=== PATIENT | male | born 1945 | race Caucasian/White ===

== ENCOUNTER → 2016-11-15 | Day surgery (SDC) | payer MEDICARE ==
[~2016-11-15] VITALS: Ht 165.1 cm; Wt 76.5 kg
[~2016-11-15] MED LIST: ACET500T3 PO; CEFT1INJ5 IV; CEFT250T8 PO; CEFU250T PO; CEPH-459 PO; CHLO25TA2 PO; CHLORHEXIDINE GLUCONATE 2 % 1 PACK (2 CLOTHS) TOPICAL PRN; CLON0.1T PO; COUM4TAB PO; COZA50TA PO; DO NOT ADM ANY ANTICOAGULANT DRUGS PRN; ENOX40IN SQ; HYDR-3533 PO; INSULIN HUMAN REGULAR 1,000 UNITS/10 ML VIAL SQ PRN; LACTATED RINGER'S 1000 ML IV PRN; LACTPOW68 PO; MAXI5O LEFT EYE; METF500T PO; METO50TA PO; METOPROLOL TARTRATE 25 MG TAB PO PRN; ONDANSETRON HCL 4 MG/2 ML VIAL IV PUSH PRN; PHENYLEPH/NS 1000 MCG/10 ML SYR IV ONE; POVIDONE IODINE 5% (ANTISEPSIS KIT) 4 APPLICATIONS EACH NARE PRN; PROPOFOL 200 MG/20 ML AMP IV ONE; SODIUM CHLORID 0.9% 500 ML IV PRN; TERA5CAP3 PO; THERTAB56 PO; WHIT15OI EACH EYE; beer; ePHEDrine/NS 25 MG/5 ML SYR IV ONE; fentaNYL CITRATE 250 MCG/5 ML AMP ONE; oxyCODONE/ACETAMINOPHEN 5 MG/325 MG TAB PO PRN
[2016-11-15 07:00] VITALS: BP 138/73; PULSE 78; RESP 20; TEMP 98; O2SAT 95
[2016-11-15] MEDS: ceFAZolin 2 GM PREMIX 50 ML IV SCH ×2 (07:16→07:39)
[2016-11-15 07:28] LABS: AUTOMATED NEUTROPHIL # 7.3 TH/MM3 (1.8-7.7); BASOPHIL # 0.1 TH/MM3 (0-0.2); BASOPHIL % 0.7 % (0.0-2.0); EOSINOPHIL # 0.3 TH/MM3 (0-0.4); EOSINOPHIL % 2.1 % (0.0-4.0); HEMATOCRIT 39.8 % (39.0-51.0); HEMO FLAGS DIFF FINAL; LYMPH % 29.8 % (9.0-44.0); LYMPHOCYTE # 3.6 TH/MM3 (1.0-4.8); MEAN CELL VOLUME 85.1 FL (80.0-100.0); MEAN CORPUSCULAR HEMOGLOBIN 29.2 PG (27.0-34.0); MEAN CORPUSCULAR HGB CONC 34.3 % (32.0-36.0); MONO % 7.2 % (0.0-8.0); NEUT % 60.2 % (16.0-70.0); PLATELET COUNT 252 TH/MM3 (150-450); RED BLOOD COUNT 4.68 MIL/MM3 (4.50-5.90); RED CELL DISTRIBUTION WIDTH 15.3 % (11.6-17.2); WHITE BLOOD COUNT 12.1 TH/MM3 (4.0-11.0)
[2016-11-15 07:35] LABS: PROTHROMBIN TIME - PATIENT 10.6 SEC (9.8-11.6)
--- NOTE | 2016-11-15 09:23 | PD.OP ---
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 Patient presents today for cystoscopy, excisional biopsy of this lesion and fulguration of the biopsy site. Operative procedure in detail: Patient was brought to the operating room suite and placed supine on the OR table. He was then placed under general anesthesia. He was then repositioned in the dorsolithotomy position and prepped and draped in normal sterile fashion. After appropriate timeout was undertaken I proceeded with cystoscopic evaluation utilizing the rigid cystoscope with the 20 [place] sheath and both the 30 and 70 lenses. The urethra was patent without stricture formation, the prostatic urethra was nonobstructing further passage of the cystoscope within the urinary bladder revealed both right and left ureteral orifice these to be in correct anatomic position effluxing clear yellow urine. The previous tumor site involving the left lateral wall the bladder in the vicinity of the left orifice was well healed. There was a single raised erythematous lesion noted at the juncture of the left bladder wall and the bladder dome that was previously seen on office cystoscopy. The cup biopsy forcep was then utilized and the mass was excised. The biopsy site was then fulgurated with the Bugbee electrode. The bladder was then drained of irrigant fluid and the cystoscope withdrawn. A 16 [place]ian 10 cc Zamarripa catheter was in place and connected to gravity drainage. The patient tolerated the procedures without complications and was transferred to the PACU in satisfactory condition. Tiburcio Valladares MD Nov 15, 2016 09:23
[2016-11-15 10:50] VITALS: BP 133/69; PULSE 76; RESP 18; TEMP 99.9; O2SAT 96
== END | disposition home or self-care (01) ==
LOC: HSDC 05:58
PROVIDERS: ATTEND Urology
DX: C67.9 Malignant neoplasm of bladder, unspecified (principal); I48.91 Unspecified atrial fibrillation; I10 Essential (primary) hypertension
CPT/HCPCS: 00912; 52234; 85025; 85610; 88305; J0690; J2370; J3010; J7120; 88307

== ENCOUNTER 2016-11-18 18:45 | Inpatient (IN) | payer OTHER, MEDICARE ==
[~2016-11-18] VITALS: Ht 160 cm; Wt 91.8 kg
[2016-11-18] MEDS: SODIUM CHLOR 0.9% 1000 ML INJ 1,000 ML IV SCH (00:45)
[~2016-11-18 18:45] MED LIST changes: -ACET500T3 PO; -CEFT1INJ5 IV; -CEFT250T8 PO; -CEFU250T PO; -CHLORHEXIDINE GLUCONATE 2 % 1 PACK (2 CLOTHS) TOPICAL PRN; -DO NOT ADM ANY ANTICOAGULANT DRUGS PRN; -INSULIN HUMAN REGULAR 1,000 UNITS/10 ML VIAL SQ PRN; -LACTATED RINGER'S 1000 ML IV PRN; -LACTPOW68 PO; -METOPROLOL TARTRATE 25 MG TAB PO PRN; -ONDANSETRON HCL 4 MG/2 ML VIAL IV PUSH PRN; -PHENYLEPH/NS 1000 MCG/10 ML SYR IV ONE; -POVIDONE IODINE 5% (ANTISEPSIS KIT) 4 APPLICATIONS EACH NARE PRN; -PROPOFOL 200 MG/20 ML AMP IV ONE; -SODIUM CHLORID 0.9% 500 ML IV PRN; -WHIT15OI EACH EYE; -beer; -ePHEDrine/NS 25 MG/5 ML SYR IV ONE; -fentaNYL CITRATE 250 MCG/5 ML AMP ONE; -oxyCODONE/ACETAMINOPHEN 5 MG/325 MG TAB PO PRN
[2016-11-18 19:12] VITALS: BP 94/52; PULSE 90; RESP 22; TEMP 98.7; O2SAT 95
--- NOTE | 2016-11-18 19:44 | PD ---
HPI Chief Complaint: Fever Time Seen by Provider: 19:24 Travel History International Travel<30 days: No Contact w/Intl Traveler<30days: No Traveled to known affect area: No History of Present Illness HPI Patient comes to emergency Department from an [facility] with reported fevers status post reported cholecystectomy. Patient is a uncertain as to why he is here denies any fevers or pain currently. After the reviewing patient's chart was it was found patient had a cystoscopy done 3 days ago. I discussed this with the patient reports this is correct. Patient denies any pain. Reports he's had a Zamarripa for a while now. Denies any chest pain, shortness of breath, nausea , vomiting, back pain, or abdominal pain. PFSH Past Medical History Arthritis: No Asthma: No Autoimmune Disease: No Blood Disorders: Yes (TAKES COUMADIN) Anxiety: No Depression: No Heart Rhythm Problems: No Cancer: No Cardiovascular Problems: Yes (A FIB) High Cholesterol: No Chemotherapy: No Chest Pain: No Congestive Heart Failure: No COPD: No Cerebrovascular Accident: Yes (2004 CVA) Diabetes: Yes (TYPE 2) Endocrine: No Gastrointestinal Disorders: No Glaucoma: No Genitourinary: Yes (HEMATURIA) Hepatitis: No Hiatal Hernia: No Hypertension: Yes Immune Disorder: No Musculoskeletal: No Neurologic: Yes (RT SIDE FLACCID, APHASIA, CVA) Psychiatric: No Reproductive: No Respiratory: No Immunizations Current: Yes Sleep Apnea: No Thyroid Disease: No Ulcer: Yes Past Surgical History AICD: No Genitourinary Surgery: No Joint Replacement: No Pacemaker: No Other Surgery: No Social History Alcohol Use: No Tobacco Use: Yes (1/2 PPD) Substance Use: No Allergies-Medications (Allergen,Severity, Reaction): Coded Allergies: No Known Allergies (Verified , 11/18/16) Reported Meds & Prescriptions Reported Meds & Active Scripts Active Keflex (Cephalexin) 250 Mg Cap 250 Mg PO TID Reported [beer] 1 Acetaminophen 500 Mg Tab 650 Mg PO Q6H PRN Ceftriaxone Inj (Ceftriaxone Sodium) 1 Gm Inj 1 Gm IV DAILY Artificial Tears Opth Oint (White Petrolatum-Mineral Oil Opth Oint 83-15%) 83-15 % Oint 1 Applic EACH EYE HS Pull down lower eyelid & apply 1/4 inch to inside of eyelid. Lactobacillus Acidophilus 1 Pkt 1 Pkt PO TID Thera (Multiple Vitamin) 1 Tab Tab 1 Tab PO DAILY Lortab (Hydrocodone-Acetaminophen) 5-325 Mg Tab 1 Tab PO Q6H PRN Enoxaparin Inj (Enoxaparin Sodium) 40 Mg/0.4 Ml Syr 40 Mg SQ DAILY Cozaar (Losartan Potassium) 50 Mg Tab 50 Mg PO DAILY Coumadin (Warfarin) 4 Mg Tab 4 Mg PO DAILY Terazosin (Terazosin HCl) 5 Mg Cap 5 Mg PO HS Metoprolol Tartrate 50 Mg Tab 50 Mg PO DAILY Metformin (Metformin HCl) 500 Mg Tab 500 Mg PO BIDPC With meals Maxitrol Opth Drops (Neomycin/Polymyxin/Dexamethasone) 3.5-10,000-0.1 Mg-Units- % Susp 1 Drop LEFT EYE DAILY Clonidine (Clonidine HCl) 0.1 Mg Tab 0.1 Mg PO DAILY Chlorthalidone 25 Mg Tab 25 Mg PO DAILY Review of Systems Except as stated in HPI: all other systems reviewed are Neg Physical Exam Narrative GENERAL: Well-developed, overly nourished, in no acute distress, and non-ill appearing. SKIN: Focused skin assessment warm and dry. HEAD: Atraumatic. Normocephalic. EYES: Pupils equal and round. EOMI. No scleral icterus. No injection or drainage. ENT: No nasal bleeding or discharge. Mucous membranes pink and moist. NECK: Trachea midline. Supple. No nuclear rigidity. CARDIOVASCULAR: Regular rate and rhythm. No murmur appreciated. RESPIRATORY: No accessory muscle use. No respiratory distress. Scant rhonchi noted right lower lobe. GASTROINTESTINAL: Abdomen soft, minimal tenderness suprapubic, nondistended. Hepatic and splenic margins not palpable. Normal bowel sounds 4. No pulsatile mass. MUSCULOSKELETAL: No obvious deformities. No clubbing. No cyanosis. No edema. Full range of motion. NEUROLOGICAL: Awake and alert. PSYCHIATRIC: Appropriate mood and affect. Data Data Last Documented VS Vital Signs Date Time Temp Pulse Resp B/P Pulse Ox O2 Delivery O2 Flow Rate FiO2 11/18/16 21:00 86 20 106/57 96 Room Air 11/18/16 19:12 98.7 Orders Electrocardiogram (11/18/16 19:38) Complete Blood Count With Diff (11/18/16 19:38) Comprehensive Metabolic Panel (11/18/16 19:38) Lactic Acid Sepsis Protocol (11/18/16 19:38) Urinalysis - C+S If Indicated (11/18/16 19:38) Blood Culture (11/18/16 19:38) Chest, Single Ap (11/18/16 19:38) Sodium Chloride 0.9% Flush (Ns Flush) (11/18/16 19:45) Ceftriaxone Inj (Rocephin Inj) (11/18/16 19:45) Azithromycin Inj (Zithromax Inj) (11/18/16 19:45) Ct Abd/Pel W/O Iv Contrast (11/18/16 ) Sodium Chlor 0.9% 1000 Ml Inj (Ns 1000 M (11/18/16 21:45) Urine Culture (11/18/16 21:14) Act Partial Throm Time (Ptt) (11/18/16 22:02) Prothrombin Time / Inr (Pt) (11/18/16 22:02) Lactic Acid Sepsis Protocol (11/18/16 22:05) Sodium Chlor 0.9% 1000 Ml Inj (Ns 1000 M (11/18/16 22:30) Admit Order (Ed Use Only) (11/18/16 22:20) Labs Laboratory Tests Test 11/18/16 11/18/16 19:50 21:14 White Blood Count 21.2 TH/MM3 Red Blood Count 4.18 MIL/MM3 Hemoglobin 12.3 GM/DL Hematocrit 36.0 % Mean Corpuscular Volume 86.1 FL Mean Corpuscular Hemoglobin 29.4 PG Mean Corpuscular Hemoglobin 34.1 % Concent Red Cell Distribution Width 15.8 % Platelet Count 224 TH/MM3 Mean Platelet Volume 9.3 FL Neutrophils (%) (Auto) 84.2 % Lymphocytes (%) (Auto) 8.5 % Monocytes (%) (Auto) 7.0 % Eosinophils (%) (Auto) 0.1 % Basophils (%) (Auto) 0.2 % Neutrophils # (Auto) 17.9 TH/MM3 Lymphocytes # (Auto) 1.8 TH/MM3 Monocytes # (Auto) 1.5 TH/MM3 Eosinophils # (Auto) 0.0 TH/MM3 Basophils # (Auto) 0.1 TH/MM3 CBC Comment DIFF FINAL Differential Comment Sodium Level 133 MEQ/L Potassium Level 3.8 MEQ/L Chloride Level 97 MEQ/L Carbon Dioxide Level 25.3 MEQ/L Anion Gap 11 MEQ/L Blood Urea Nitrogen 25 MG/DL Creatinine 1.54 MG/DL Estimat Glomerular Filtration 45 ML/MIN Rate Random Glucose 166 MG/DL Lactic Acid Level 2.5 mmol/L Calcium Level 8.5 MG/DL Total Bilirubin 0.4 MG/DL Aspartate Amino Transf 36 U/L (AST/SGOT) Alanine Aminotransferase 49 U/L (ALT/SGPT) Alkaline Phosphatase 70 U/L Total Protein 7.5 GM/DL Albumin 3.0 GM/DL Urine Color YELLOW Urine Turbidity HAZY Urine pH 5.5 Urine Specific [place] 1.024 Urine Protein 30 mg/dL Urine Glucose (UA) NEG mg/dL Urine Ketones NEG mg/dL Urine Occult Blood SMALL Urine Nitrite NEG Urine Bilirubin NEG Urine Urobilinogen 2.0 MG/DL Urine Leukocyte Esterase MOD Urine RBC 32 /hpf Urine WBC 13 /hpf Urine Squamous Epithelial <1 /hpf Cells Urine Bacteria RARE /hpf Urine Hyaline Casts 2 /lpf Urine Mucus FEW /lpf Microscopic Urinalysis Comment CULTURE INDICATED MDM Medical Decision Making Medical Screen Exam Complete: Yes Emergency Medical Condition: Yes Differential Diagnosis Pneumonia, sepsis, COPD exacerbation, urinary tract infection, postop complication, other Narrative Course Patient was seen and examined. Initial laboratory and radiological studies were obtained and reviewed. Patient was placed antibiotics for suspected possible pneumonia. Patient was given IV fluids. Discussed patient with Dr. Alcantara, who saw and evaluated the patient and is in agreement with plan of care and disposition. Discussed all findings and plan care of patient was agreeable for admission. All questions were answered. Patient remained stable throughout ED course. Sepsis Criteria SIRS Criteria (2 or more): Heart rate over 90, RR > 20 or PaCO2 < 32, WBC > 98098, < 4000 or > 10% bands Sepsis Criteria (SIRS+source): Infect source susp/known Severe Sepsis (+one): Hypotension, Lactate >2 Physician Communication Physician Communication [id number] discussed patient with Wali Smalls PA-C for Dr. Jacob, who is agreeable to admit patient. Diagnosis Primary Impression: Sepsis Qualified Code: A41.9 - Sepsis, due to unspecified organism Additional Impression: UTI (urinary tract infection) Qualified Code: N39.0 - Urinary tract infection with hematuria, site unspecified Admitting Information Admitting Physician Requests: Admit Condition: Stable Eladio Soto Nov 18, 2016 19:44
[2016-11-18] MEDS ORDERED: AZITHROMYCIN INJ 500 MG in SODIUM CHLOR 0.9% 250 ML INJ 250 ML IV ONE (19:45)
[2016-11-18] MEDS ORDERED: SODIUM CHLORIDE 0.9% FLUSH 10 ML FLUSH IVF PRN (19:45)
[2016-11-18] MEDS ORDERED: cefTRIAXone INJ 1,000 MG in SODIUM CHLORIDE 0.9% INJ 100 ML IV ONE (19:45)
[2016-11-18 20:00] VITALS: BP 108/58; PULSE 105; RESP 22; O2SAT 100
[2016-11-18] MEDS ORDERED: LACTPOW68 PO (20:07)
[2016-11-18] MEDS ORDERED: CEFT1INJ5 IV (20:08)
[2016-11-18] MEDS ORDERED: WHIT15OI EACH EYE (20:08)
[2016-11-18 20:12] LABS: AUTOMATED NEUTROPHIL # 17.9 TH/MM3 (1.8-7.7); BASOPHIL # 0.1 TH/MM3 (0-0.2); BASOPHIL % 0.2 % (0.0-2.0); EOSINOPHIL % 0.1 % (0.0-4.0); HEMO FLAGS DIFF FINAL; LYMPH % 8.5 % (9.0-44.0); LYMPHOCYTE # 1.8 TH/MM3 (1.0-4.8); MEAN CELL VOLUME 86.1 FL (80.0-100.0); MEAN CORPUSCULAR HEMOGLOBIN 29.4 PG (27.0-34.0); MEAN CORPUSCULAR HGB CONC 34.1 % (32.0-36.0); NEUT % 84.2 % (16.0-70.0); PLATELET COUNT 224 TH/MM3 (150-450); RED BLOOD COUNT 4.18 MIL/MM3 (4.50-5.90); RED CELL DISTRIBUTION WIDTH 15.8 % (11.6-17.2); WHITE BLOOD COUNT 21.2 TH/MM3 (4.0-11.0)
[2016-11-18] MEDS ORDERED: ACET500T3 PO (20:13)
[2016-11-18] MEDS ORDERED: beer (20:16)
[2016-11-18 20:35] LABS: ALKALINE PHOSPHATASE 70 U/L (45-117); ALT (GPT) 49 U/L (12-78); ANION GAP 11 MEQ/L (5-15); AST (GOT) 36 U/L (15-37); BICARBONATE 25.3 MEQ/L (21.0-32.0); BLOOD UREA NITROGEN 25 MG/DL (7-18); CHLORIDE 97 MEQ/L (98-107); GLOMERULAR FILTRATION RATE 45 ML/MIN (>89); POTASSIUM 3.8 MEQ/L (3.5-5.1); SODIUM (NA) 133 MEQ/L (136-145); TOTAL BILIRUBIN ADULT 0.4 MG/DL (0.2-1.0)
--- NOTE | 2016-11-18 20:38 | RADRPT ---
EXAM DATE/TIME: 11/18/2016 20:09 [facility] COMPARISON: No previous studies available for comparison. INDICATIONS : Fever . MEDICAL HISTORY : Stroke. Cardiovascular disease. Hypertension. SURGICAL HISTORY : None. ENCOUNTER: Initial ACUITY: 3 days PAIN SCORE: 0/10 LOCATION: Bilateral upper chest FINDINGS: A single view of the chest demonstrates the lungs to be symmetrically aerated without evidence of mas s, infiltrate or effusion. The cardiomediastinal contours are unremarkable. Osseous structures are intact. CONCLUSION: No acute disease. Wali Melo MD on November 18, 2016 at 20:36 Board Certified Radiologist. This report was verified electronically.
[2016-11-18 21:00] VITALS: BP 106/57; PULSE 86; RESP 20; O2SAT 96
[2016-11-18] MEDS ORDERED: SODIUM CHLOR 0.9% 1000 ML INJ 1,000 ML IV ONE ×2 (21:45→22:30)
[2016-11-18 21:48] LABS: BACTERIA, URINE RARE /hpf; BLOOD, URINE SMALL (NEG); GLUCOSE,URINE NEG (NEG); HYALINE CAST, URINE 2 /lpf (RARE); KETONE, URINE NEG (NEG); MUCUS URINE FEW /lpf (OCC); NITRITE,URINE NEG (NEG); PH, URINE 5.5 (5.0-8.5); SQUAMOUS EPITHELIAL CELL URINE <1 /hpf (0-5); URINE COLOR YELLOW (YELLW/STRAW)
[2016-11-18 21:50] LABS: COMMENT (UR) CULTURE INDICATED; CULTURE IF INDICATED CULTURE INDICATED
--- NOTE | 2016-11-18 21:51 | RADRPT ---
EXAM DATE/TIME: 11/18/2016 21:20 [facility] COMPARISON: CT ABDOMEN & PELVIS W CONTRAST, May 17, 2016, 11:58. INDICATIONS : Fevers status post cholecycstectomy ORAL CONTRAST: No oral contrast ingested. RADIATION DOSE: 9.96 CTDIvol (mGy) MEDICAL HISTORY : Cerebrovascular disease. Hypertension. Diabetes mellitus type 2. SURGICAL HISTORY : Cholecystectomy. Bladder tumor removed ENCOUNTER: Initial ACUITY: 1 day PAIN SCALE: 4/10 LOCATION: Diffuse abdomen TECHNIQUE: Volumetric scanning of the abdomen and pelvis was performed. Using automated exposure control and ad justment of the mA and/or kV according to patient size, radiation dose was kept as low as reasonably achievable to obtain optimal diagnostic quality images. FINDINGS: LOWER LUNGS: The visualized lower lungs are clear. LIVER: Configuration of the liver is unchanged. No evidence of mass or biliary ductal dilatation. Gallbladde r is seen and is again noted to contain numerous stones. No pericholecystic fluid or inflammatory myriam nge. SPLEEN: Normal size without lesion. PANCREAS: Within normal limits. KIDNEYS: Nonobstructing upper pole. On involving the left kidney. Smaller hepatic cyst involving the lateral m idpole of right kidney. No hydronephrosis. ADRENAL GLANDS: Stable nodular enlargement of the left adrenal. VASCULAR: There is no aortic aneurysm. BOWEL/MESENTERY: Distal colonic diverticula. No abnormal dilatation, wall thickening or focal inflammatory changes. ABDOMINAL WALL: Small fat containing umbilical hernia. RETROPERITONEUM: There is no lymphadenopathy. BLADDER: Decompressed with Zamarripa catheter noted. REPRODUCTIVE: Within normal limits. INGUINAL: There is no lymphadenopathy or hernia. MUSCULOSKELETAL: Within normal limits for patient age. CONCLUSION: Gallbladder is present and contains stones. No definite acute CT findings. Wali Melo MD on November 18, 2016 at 21:44 Board Certified Radiologist. This report was verified electronically.
[2016-11-18 22:01] LABS: LACTIC ACID GHOST NOT REPORTABLE
[2016-11-18 22:31] LABS: PROTHROMBIN TIME - PATIENT 11.4 SEC (9.8-11.6)
[2016-11-18 22:38] LABS: APTT (PATIENT) 31.8 SEC (24.3-30.1)
--- NOTE | 2016-11-18 22:49 | EKG ---
Date Performed: 11/18/2016 Time Performed: 20:09:51 PTAGE: 71 years EKG: Sinus rhythm NORMAL ECG PREVIOUS TRACING : 05/31/2016 09.38 No significant change from previous tracing noted. DOCTOR: Real Macias Interpretating Date/Time 11/18/2016 22:48:57
[2016-11-18] MEDS ORDERED: SENNOSIDES 8.6 MG TAB PO PRN (23:45)
[2016-11-18] MEDS ORDERED: NALOXONE HCL 0.4 MG/ML AMP IV PRN (23:45)
[2016-11-18] MEDS ORDERED: SODIUM CHLORIDE 0.9% FLUSH 10 ML FLUSH IV FLUSH PRN (23:45)
[2016-11-18] MEDS ORDERED: ONDANSETRON HCL 4 MG/2 ML VIAL IVP PRN (23:45)
[2016-11-18] MEDS ORDERED: ACETAMINOPHEN 325 MG TAB PO PRN (23:45)
[2016-11-19] VITALS (8 sets, daily range): BP systolic 99–127; BP diastolic 56–60; PULSE 69–95; RESP 18–20; TEMP 96–98.7; O2SAT 92–96
[2016-11-19] MEDS ORDERED: HEPARIN SODIUM - SQ 10,000 UNITS/ML VIAL SQ SCH
[2016-11-19] MEDS: FAMOTIDINE 20 MG TAB PO SCH ×2 (08:05→22:45)
[2016-11-19] MEDS: SODIUM CHLORIDE 0.9% FLUSH 10 ML FLUSH IV FLUSH SCH ×2 (08:05→21:00)
--- NOTE | 2016-11-19 09:13 | HHI.HP ---
HPI Service [facility] Primary Care Physician René [facility] Admission Diagnosis sepsis, UTI Diagnoses: Chief Complaint: fever Travel History International Travel<30 Days: No Contact w/Intl Traveler <30 Da: No Traveled to Known Affected Are: No History of Present Illness This is a pleasant 71-year-old male with past medical history of bladder cancer , A. 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 Patient was sent from assisted living facility reported fevers. Patient has expressive aphasia, unable to provide any history. Information is obtained from the medical record. On 2016, patient underwent Cystoscopy, excisional biopsy bladder mass and fulguration of bladder mass site per Dr. Valladares. Patient has a chronic indwelling catheter. At the facility, he has been treated with Rocephin 1 g IM which was started on November 17, 2016 and was due to complete on 11/20/2016. It is not clear how high the fevers were. At this time, patient points to his lower abdomen when asked if in pain. There is no blood noted in the Zamarripa bag. Patient is on Coumadin as well as Lovenox for bridging, prior history of atrial fibrillation. Patient was evaluated in emergency room, BMP was significant for sodium 133, BUN 25, creatinine 1.54. Lactic acid was 2.5, today it is 1.9. CBC was remarkable for significant leukocytosis, WBC 21.2, this morning it is down to 14.6. There was no fever reported. Blood pressure was 9452, slightly tachycardic heart rate 105. Cultures were obtained, patient was started on empiric antibiotics. CT of the abdomen was done showing gallbladder is present and contained stones. Patient denies any abdominal discomfort, no nausea no vomiting. At this time, patient is resting comfortably , has no complaints. Patient is admitted for further evaluation and treatment. Review of Systems ROS Limitations: Speech Impaired Past Family Social History Past Medical History Right right-sided CVA expressive aphasia Recent diagnosis of low-grade noninvasive superficial bladder cancer, status post TURBT 05/31/2016 A. fib, on chronic anticoagulation with Coumadin Tobacco abuse COPD Type 2 diabetes. PUD Hypertension Cholelithiasis Past Surgical History TURBT May 2016 Cystoscopy, excisional biopsy bladder mass and fulguration of bladder mass site 11/15/2016 Reported Medications Reported Meds & Active Scripts Active Keflex (Cephalexin) 250 Mg Cap 250 Mg PO TID Reported [beer] 1 Acetaminophen 500 Mg Tab 650 Mg PO Q6H PRN Ceftriaxone Inj (Ceftriaxone Sodium) 1 Gm Inj 1 Gm IV DAILY Artificial Tears Opth Oint (White Petrolatum-Mineral Oil Opth Oint 83-15%) 83-15 % Oint 1 Applic EACH EYE HS Pull down lower eyelid & apply 1/4 inch to inside of eyelid. Lactobacillus Acidophilus 1 Pkt 1 Pkt PO TID Thera (Multiple Vitamin) 1 Tab Tab 1 Tab PO DAILY Lortab (Hydrocodone-Acetaminophen) 5-325 Mg Tab 1 Tab PO Q6H PRN Enoxaparin Inj (Enoxaparin Sodium) 40 Mg/0.4 Ml Syr 40 Mg SQ DAILY Cozaar (Losartan Potassium) 50 Mg Tab 50 Mg PO DAILY Coumadin (Warfarin) 4 Mg Tab 4 Mg PO DAILY Terazosin (Terazosin HCl) 5 Mg Cap 5 Mg PO HS Metoprolol Tartrate 50 Mg Tab 50 Mg PO DAILY Metformin (Metformin HCl) 500 Mg Tab 500 Mg PO BIDPC With meals Maxitrol Opth Drops (Neomycin/Polymyxin/Dexamethasone) 3.5-10,000-0.1 Mg-Units- % Susp 1 Drop LEFT EYE DAILY Clonidine (Clonidine HCl) 0.1 Mg Tab 0.1 Mg PO DAILY Chlorthalidone 25 Mg Tab 25 Mg PO DAILY Allergies: Coded Allergies: No Known Allergies (Verified , 11/18/16) Active Ordered Medications Inpatient Medications Acetaminophen (Tylenol) 650 mg Q4H PRN PO TEMP > 100.4; Start 11/18/16 at 23:45 Azithromycin 500 mg/Sodium Chloride 250 ml @ 250 mls/hr ONCE ONCE IV Last administered on 11/18/16 21:00; Start 11/18/16 at 19:45; Stop 11/18/16 at 20:44 ; Status DC Azithromycin/ Sodium Chloride (Zithromax Inj/ NS 250 ml Inj) 250 ml @ 250 mls/ hr Q24H IV ; Start 11/19/16 at 21:00 Ceftriaxone Sodium 1000 mg/ Sodium Chloride 100 ml @ 200 mls/hr Q24H IV ; Start 11/19/16 at 20:00 Famotidine (Pepcid) 20 mg BID PO Last administered on 11/19/16 08:05; Start at 09:00 Heparin Sodium (Porcine) (Heparin Inj) 5,000 units Q12H SQ Last administered on 11/19/16 01:10; Start 11/19/16 at 00:00 Naloxone HCl 0.4 mg 0.4 mg UNSCH PRN IV SEE LABEL COMMENTS; Start 11/18/16 at 23:45 Ondansetron HCl (Zofran Inj) 4 mg Q6H PRN IVP NAUSEA OR VOMITING; Start at 23:45 Sennosides (Senokot) 17.2 mg Q12H PRN PO CONSTIPATION; Start 11/18/16 at 23:45 Sodium Chloride (NS 1000 ml Inj) 1,000 ml @ 100 mls/hr Q10H IV Last administered on 11/18/16 00:45; Start 11/18/16 at 23:43 Sodium Chloride (NS Flush) 2 ml BID IV FLUSH Last administered on 11/19/16 08: 05; Start 11/19/16 at 09:00 Sodium Chloride 2 ml 2 ml UNSCH PRN IVF FLUSH AFTER USING IV ACCESS; Start at 19:45; Stop 11/18/16 at 23:48; Status DC Family History Unable to obtain Social History Patient resides at [facility], he's not , has no children. Has siblings who live close by. He smokes, unable to verbalize how much. No alcohol, no substance abuse. Patient is on a motorized wheelchair. Physical Exam Vital Signs Vital Signs Date Time Temp Pulse Resp B/P Pulse Ox O2 Delivery O2 Flow Rate FiO2 11/19/16 08:16 96.0 74 18 99/60 94 11/19/16 04:54 98.7 74 20 119/60 95 11/19/16 00:10 94 21 11/19/16 00:08 85 19 113/56 97 11/18/16 21:00 86 20 106/57 96 Room Air 11/18/16 20:00 105 22 108/58 100 Room Air 11/18/16 19:12 98.7 90 22 94/52 95 Physical Exam GENERAL: This is a well-nourished, well-developed patient, in no apparent distress. SKIN: No rashes, ecchymoses or lesions. Cool and dry. HEAD: Atraumatic. Normocephalic. No temporal or scalp tenderness. EYES: Pupils equal round and reactive. Extraocular motions intact. No scleral icterus. No injection or drainage. ENT: Nose without bleeding, purulent drainage or septal hematoma. Throat without erythema, tonsillar hypertrophy or exudate. Uvula midline. Airway patent. NECK: Trachea midline. No JVD or lymphadenopathy. Supple, nontender, no meningeal signs. CARDIOVASCULAR: Regular rate and rhythm without murmurs, gallops, or rubs. RESPIRATORY: Clear to auscultation. Breath sounds equal bilaterally. No wheezes , rales, or rhonchi. GASTROINTESTINAL: Abdomen soft, non-tender, nondistended. No hepato-splenomegaly , or palpable masses. No guarding. MUSCULOSKELETAL: Extremities without clubbing, cyanosis, or edema. No joint tenderness, effusion, or edema noted. No calf tenderness. Negative Homans sign bilaterally. NEUROLOGICAL: Awake and alert. Cranial nerves II through XII intact. Motor and sensory grossly within normal limits. Five out of 5 muscle strength in all muscle groups. Normal speech. Laboratory Laboratory Tests Test 11/18/16 11/18/16 11/18/16 19:50 21:14 22:00 White Blood Count 21.2 Red Blood Count 4.18 Hemoglobin 12.3 Hematocrit 36.0 Mean Corpuscular Volume 86.1 Mean Corpuscular Hemoglobin 29.4 Mean Corpuscular Hemoglobin 34.1 Concent Red Cell Distribution Width 15.8 Platelet Count 224 Mean Platelet Volume 9.3 Neutrophils (%) (Auto) 84.2 Lymphocytes (%) (Auto) 8.5 Monocytes (%) (Auto) 7.0 Eosinophils (%) (Auto) 0.1 Basophils (%) (Auto) 0.2 Neutrophils # (Auto) 17.9 Lymphocytes # (Auto) 1.8 Monocytes # (Auto) 1.5 Eosinophils # (Auto) 0.0 Basophils # (Auto) 0.1 CBC Comment DIFF FINAL Differential Comment Sodium Level 133 Potassium Level 3.8 Chloride Level 97 Carbon Dioxide Level 25.3 Anion Gap 11 Blood Urea Nitrogen 25 Creatinine 1.54 Estimat Glomerular Filtration 45 Rate Random Glucose 166 Lactic Acid Level 2.5 1.9 Calcium Level 8.5 Total Bilirubin 0.4 Aspartate Amino Transf 36 (AST/SGOT) Alanine Aminotransferase 49 (ALT/SGPT) Alkaline Phosphatase 70 Total Protein 7.5 Albumin 3.0 Urine Color YELLOW Urine Turbidity HAZY Urine pH 5.5 Urine Specific [place] 1.024 Urine Protein 30 Urine Glucose (UA) NEG Urine Ketones NEG Urine Occult Blood SMALL Urine Nitrite NEG Urine Bilirubin NEG Urine Urobilinogen 2.0 Urine Leukocyte Esterase MOD Urine RBC 32 Urine WBC 13 Urine Squamous Epithelial <1 Cells Urine Bacteria RARE Urine Hyaline Casts 2 Urine Mucus FEW Microscopic Urinalysis Comment CULTURE INDICATED Prothrombin Time 11.4 Prothromb Time International 1.0 Ratio Activated Partial 31.8 Thromboplast Time Date/Time Procedure Status Source Growth 11/18/16 21:14 Urine Culture Received Urine Random Urine Pending 11/18/16 19:50 Aerobic Blood Culture Received Blood Peripheral Pending 11/18/16 19:50 Anaerobic Blood Culture Received Blood Peripheral Pending Result Diagram: 11/18/16 1950 11/18/16 1950 Imaging Last Impressions Chest X-Ray 11/18/16 1938 Signed Impressions: Service Date/Time: November 20:09 - CONCLUSION: No acute disease. Wali Melo MD Abdomen/Pelvis CT 11/18/16 0000 Signed Impressions: Service Date/Time: November 21:20 - CONCLUSION: Gallbladder is present and contains stones. No definite acute CT findings. Wali Melo MD Assessment and Plan Problem List: (1) Sepsis (2) UTI (urinary tract infection) (3) Bladder cancer (4) Chronic anticoagulation (5) Leukocytosis (6) Atrial fibrillation (7) History of CVA with residual deficit (8) Tobacco abuse (9) COPD (chronic obstructive pulmonary disease) Assessment and Plan 70-year-old male diagnosed with bladder cancer,s/p cystoscopy excisional biopsy bladder mass and fulguration of bladder mass site 11/15/2016, has chronic indwelling catheter. Patient was sent from halfway facility for fever. Was being treated for UTI. In the ED evaluated, found with leukocytosis, lactic acidosis, hypotension, tachycardia, recurrent UTI. -continue IVF -Continue antibiotics, follow cultures, negative so far -Lactic acid now normal CT findings of stones and gallbladder, asymptomatic -Continue to monitor Acute renal injury, possibly secondary to sepsis, dehydration. Repeat BMP with improved creatinine Continue with normal saline Monitor BMP COPD, noted with mild wheezing, no cough. Patient continues to smoke. Tobacco abuse counseling DuoNeb's 4 times a day and when necessary. Afib, stable -Continue Lopressor -Telemetry monitoring -Continue Coumadin, INR subtherapeutic. On Lovenox for bridging, will continue. Monitor INR daily. Hx CVA with right sided hemiparesis -stable, continue home medications Coumadin and Lovenox for DVT prophylaxis Home medications reviewed, initiated as indicated Plan of discussed with the patient, attending and registered nurse. Further management of the patient will be dependent on the hospital course Patient has advanced directives in place, [place] DNR documentation was sent from [place]. Patient's wishes will be respected, appropriate order has been entered. This patient was seen by myself and Dr. Jacob, this H&P is written on his behalf. Physician Certification 2 Midnight Certification Type: Admission for Inpatient Services Order for Inpatient Services The services are ordered in accordance with Medicare regulations or non- Medicare payer requirements, as applicable. In the case of services not specified as inpatient-only, they are appropriately provided as inpatient services in accordance with the 2-midnight benchmark. Estimated LOS (days): 2 2 days is the estimated time the patient will need to remain in the hospital, assuming treatment plan goals are met and no additional complications. Post-Hospital Plan: SNF Problem Qualifiers (1) Sepsis: Qualified Code: A41.9 - Sepsis, due to unspecified organism (2) UTI (urinary tract infection): Qualified Code: N39.0 - Urinary tract infection with hematuria, site unspecified (3) COPD (chronic obstructive pulmonary disease): Qualified Code: J44.9 - Chronic obstructive pulmonary disease, unspecified COPD type [facility]it Nov 19, 2016 09:13
[2016-11-19] MEDS ORDERED: DEXTROSE 50% IN WATER 50 ML VIAL(D50) IV PUSH PRN (09:15)
[2016-11-19] MEDS ORDERED: RESP: ALBUTEROL 2.5 MG/IPRATROPIUM 0.5 MG NEB (PRN) NEB (09:15)
[2016-11-19] MEDS ORDERED: GLUCAGON 1 MG/ML VIAL OTHER PRN (09:15)
[2016-11-19] MEDS ORDERED: cloNIDine HCL 0.1 MG TAB PO SCH (09:15)
[2016-11-19 09:23] LABS: AUTOMATED NEUTROPHIL # 10.1 TH/MM3 (1.8-7.7); BASOPHIL % 0.2 % (0.0-2.0); EOSINOPHIL # 0.1 TH/MM3 (0-0.4); EOSINOPHIL % 0.4 % (0.0-4.0); HEMATOCRIT 35.6 % (39.0-51.0); HEMO FLAGS DIFF FINAL; LYMPHOCYTE # 3.1 TH/MM3 (1.0-4.8); MEAN CELL VOLUME 86.8 FL (80.0-100.0); MEAN CORPUSCULAR HEMOGLOBIN 28.1 PG (27.0-34.0); MEAN CORPUSCULAR HGB CONC 32.4 % (32.0-36.0); MONO % 9.3 % (0.0-8.0); NEUT % 69.1 % (16.0-70.0); PLATELET COUNT 200 TH/MM3 (150-450); RED CELL DISTRIBUTION WIDTH 15.7 % (11.6-17.2); WHITE BLOOD COUNT 14.6 TH/MM3 (4.0-11.0)
[2016-11-19] MEDS: SODIUM CHLOR 0.9% 1000 ML INJ 1,000 ML IV SCH ×2 (09:43→22:46)
[2016-11-19 09:45] LABS: BICARBONATE 27.1 MEQ/L (21.0-32.0); POTASSIUM 3.3 MEQ/L (3.5-5.1)
[2016-11-19] MEDS: INSULIN ASPART SUPPLEMENTAL SCALE SQ SCH ×3 (11:00→21:00)
[2016-11-19] MEDS: MULTIVITAMIN TAB PO SCH (11:08)
[2016-11-19] MEDS: NEOMYCIN/POLYMYX/DEXAMETH OPHT SUSP 5 ML BTL LEFT EYE SCH (11:10)
[2016-11-19] MEDS ORDERED: POTASSIUM CHLORIDE 25 MEQ EFFERVESCENT TAB PO ONE (12:00)
[2016-11-19] MEDS: RESP: ALBUTEROL 2.5 MG/IPRATROPIUM 0.5 MG NEB (SCH) NEB ×3 (12:23→21:11)
[2016-11-19] MEDS: LACTOBACILLUS ACIDOPHILUS 1 GM PACKET PO SCH ×2 (12:49→17:43)
--- NOTE | 2016-11-19 15:30 | RADRPT ---
EXAM DATE/TIME: 11/19/2016 13:00 [facility] COMPARISON: CT ABDOMEN & PELVIS W/O CONTRAST, November 18, 2016, 21:20. INDICATIONS : Abdominal pain with nausea. DOSE: 4.1 mCi Tc99m Mebrofenin IV MEDICAL HISTORY : Stroke. Chronic obstructive pulmonary disease. Carcinoma, bladder. Diabetes, hypertension and atrial fibrillation. SURGICAL HISTORY : Cystoscopy. ENCOUNTER: Initial ACUITY: 1 day PAIN SCALE: 5/10 LOCATION: Right upper quadrant TECHNIQUE: Following the intravenous administration of radiotracer, dynamic sequential images were performed wit h continuous acquisition. FINDINGS: HEPATIC KINETICS: There is prompt uptake of radiotracer in the liver. No focal defects are seen. There is normal rate of washout from the hepatic parenchyma. BILIARY CLEARANCE: Activity is first seen in the extrahepatic biliary system at 10 minutes. There is normal excretion i nto the small bowel. GALLBLADDER: Activity is first seen in the gallbladder at 50 minutes. Common bile duct kinetics are normal and th ere is no evidence of biliary obstruction. BILIARY ENTRIC REFLUX: None observed. CONCLUSION: 1. Gallbladder activity is visualized at 50 minutes. There is no evidence for cystic duct obstruction . Austin Spencer MD on November 19, 2016 at 15:28 Board Certified Radiologist. This report was verified electronically.
[2016-11-19] MEDS: WARFARIN SOD 4 MG TAB PO SCH (17:22)
[2016-11-19] MEDS: TERAZOSIN HCL 5 MG CAP PO SCH (21:00)
[2016-11-19] MEDS: ARTIFICIAL TEARS OPTH OINT 3.5 APPLIC/3.5 GM TUBO EACH EYE SCH (21:00)
[2016-11-19] MEDS: cefTRIAXone INJ 1,000 MG in SODIUM CHLORIDE 0.9% INJ 100 ML IV SCH (22:46)
[2016-11-19] MEDS: AZITHROMYCIN INJ 500 MG in SODIUM CHLOR 0.9% 250 ML INJ 250 ML IV SCH (23:25)
[2016-11-20] VITALS (7 sets, daily range): BP systolic 128–153; BP diastolic 0–71; PULSE 18–78; RESP 17–18; TEMP 96.7–99.4; O2SAT 93–94
[2016-11-20] MEDS: SODIUM CHLOR 0.9% 1000 ML INJ 1,000 ML IV SCH ×4 (03:25→20:47)
[2016-11-20] MEDS: INSULIN ASPART SUPPLEMENTAL SCALE SQ SCH ×4 (06:08→21:00)
[2016-11-20] MEDS: RESP: ALBUTEROL 2.5 MG/IPRATROPIUM 0.5 MG NEB (SCH) NEB ×4 (07:50→19:53)
[2016-11-20] MEDS: PATIENT OWN MEDICATION (Chlorthalidone 25 MG) PO SCH (09:00)
[2016-11-20] MEDS: SODIUM CHLORIDE 0.9% FLUSH 10 ML FLUSH IV FLUSH SCH ×2 (09:00→21:00)
[2016-11-20] MEDS: METOPROLOL TARTRATE 50 MG TAB PO SCH (09:38)
[2016-11-20] MEDS: LOSARTAN 50 MG TAB PO SCH (09:38)
[2016-11-20] MEDS: cloNIDine HCL 0.1 MG TAB PO SCH (09:39)
[2016-11-20] MEDS: MULTIVITAMIN TAB PO SCH (09:39)
[2016-11-20] MEDS: FAMOTIDINE 20 MG TAB PO SCH ×2 (09:39→21:05)
[2016-11-20] MEDS: LACTOBACILLUS ACIDOPHILUS 1 GM PACKET PO SCH ×3 (09:39→18:01)
[2016-11-20] MEDS: NEOMYCIN/POLYMYX/DEXAMETH OPHT SUSP 5 ML BTL LEFT EYE SCH (09:40)
[2016-11-20] MEDS: ENOXAPARIN SODIUM 40 MG/0.4 ML SYRINGE SQ SCH (09:40)
[2016-11-20 10:14] LABS: HEMATOCRIT 36.7 % (39.0-51.0); MEAN CELL VOLUME 87.2 FL (80.0-100.0); MEAN CORPUSCULAR HEMOGLOBIN 28.3 PG (27.0-34.0); MEAN CORPUSCULAR HGB CONC 32.4 % (32.0-36.0); PLATELET COUNT 222 TH/MM3 (150-450); RED BLOOD COUNT 4.21 MIL/MM3 (4.50-5.90); RED CELL DISTRIBUTION WIDTH 15.6 % (11.6-17.2); REVIEW FLAG FINAL; WHITE BLOOD COUNT 12.2 TH/MM3 (4.0-11.0)
[2016-11-20 10:18] LABS: INTERNATIONAL NORMALIZED RATIO 1.1 RATIO; PROTHROMBIN TIME - PATIENT 11.8 SEC (9.8-11.6)
[2016-11-20 10:36] LABS: BICARBONATE 25.5 MEQ/L (21.0-32.0); POTASSIUM 3.5 MEQ/L (3.5-5.1)
[2016-11-20 12:36] LABS: INTERNATIONAL NORMALIZED RATIO 1.1 RATIO; PROTHROMBIN TIME - PATIENT 12.1 SEC (9.8-11.6)
[2016-11-20] MEDS: WARFARIN SOD 4 MG TAB PO SCH (16:38)
--- NOTE | 2016-11-20 18:03 | HHI.PR ---
Subjective Interval History Alert, responsive, appropriate, a phasic but able to communicate reasonably well Review of Systems Constitutional Constitutional Remarks Appears negative however difficult to establish sure, has long-term difficulty speaking and right-sided weakness Vitals/Results Intake & Output 11/19/16 11/19/16 11/20/16 15:00 23:00 07:00 Intake Total 680 ml 120 ml Output Total 1000 ml 1450 ml 1250 ml Balance -320 ml -1450 ml -1130 ml Intake Oral 480 ml 120 ml IV Total 200 ml Output Urine Total 1000 ml 1450 ml 1250 ml Vital Signs Vital Signs Date Time Temp Pulse Resp B/P Pulse Ox O2 Delivery O2 Flow Rate FiO2 11/20/16 16:23 98.4 73 18 134/68 94 11/20/16 15:52 94 21 11/20/16 12:34 99.4 75 18 129/71 94 11/20/16 08:51 96.7 18 18 153/0 93 11/20/16 07:54 94 21 11/20/16 04:59 98.0 78 17 139/67 93 11/20/16 00:51 97.6 73 17 128/63 93 11/19/16 21:12 96 21 11/19/16 20:00 97.3 95 19 127/60 92 CBC/BMP: 11/20/16 0928 11/20/16 0828 Lab Results Laboratory Tests Test 11/20/16 11/20/16 11/20/16 08:28 09:28 12:01 Prothrombin Time 11.8 SEC 12.1 SEC Prothromb Time International 1.1 RATIO 1.1 RATIO Ratio Sodium Level 138 MEQ/L Potassium Level 3.5 MEQ/L Chloride Level 105 MEQ/L Carbon Dioxide Level 25.5 MEQ/L Anion Gap 8 MEQ/L Blood Urea Nitrogen 11 MG/DL Creatinine 0.80 MG/DL Estimat Glomerular Filtration 96 ML/MIN Rate Random Glucose 79 MG/DL Calcium Level 8.5 MG/DL White Blood Count 12.2 TH/MM3 Red Blood Count 4.21 MIL/MM3 Hemoglobin 11.9 GM/DL Hematocrit 36.7 % Mean Corpuscular Volume 87.2 FL Mean Corpuscular Hemoglobin 28.3 PG Mean Corpuscular Hemoglobin 32.4 % Concent Red Cell Distribution Width 15.6 % Platelet Count 222 TH/MM3 Mean Platelet Volume 9.2 FL Physical Exam General General Appearance: Well Developed, Comfortable, Obese Eyes Eye Exam: Pupils Reactive Ears & Nose Ears & Nose Exam: Nasal Mucosa [place] Throat Throat Exam: Oral Mucosa [place] & Moist Neck Neck Exam: Trachea Midline Pulmonary Resp Exam: Breath Sounds Equal Cardiology CV Exam: Normal Sinus Rhythm Gastrointestinal/Abdomen GI Exam: Bowel Sounds Present Musculoskeletal MS Remarks Aphasic with right-sided weakness Integumentary Skin Exam: Warm, Dry Extremeties Extremities Exam: Trace Edema Neurologic Neuro Exam: Alert, Awake Psychiatric Psych Exam: Appropriate Responses VTE Prophylaxis VTE Prophylaxis Meds: Heparin, Coumadin Assessment/Plan Assessment/Plan Assessment Sepsis on admission Bacteremia Hypotension on admission, improved Tachycardia on admission, improved Acute kidney injury Possible urinary infection, Bladder cancer, recent cystoscopy with excision/fulguration of bladder mass History of stroke on anticoagulation History of atrial fibrillation, tobacco abuse, COPD, obesity [facility] resident, DNR Management IV fluids IV antibiotics Continue all medications Target INR 2-3 DuoNeb as needed Follow renal function Follow culture results Continue anticoagulation DVT prophylaxis Discussed with nurse 40 minutes Lesa Jacob MD Nov 20, 2016 18:03 continue. Monitor INR daily. Hx CVA with right sided hemiparesis -stable, continue home medications Coumadin and Lovenox for DVT prophylaxis Home medications reviewed, initiated as indicated Plan of discussed with the patient, attending and registered nurse. Further management of the patient will be dependent on the hospital course Patient has advanced directives in place, [place] DNR documentation was sent from [place]. Patient's wishes will be respected, appropriate order has been entered. Lesa Jacob MD Nov 20, 2016 18:03
[2016-11-20] MEDS: cefTRIAXone INJ 1,000 MG in SODIUM CHLORIDE 0.9% INJ 100 ML IV SCH (20:59)
[2016-11-20] MEDS: ARTIFICIAL TEARS OPTH OINT 3.5 APPLIC/3.5 GM TUBO EACH EYE SCH (21:00)
[2016-11-20] MEDS: TERAZOSIN HCL 5 MG CAP PO SCH (21:04)
[2016-11-20] MEDS: AZITHROMYCIN INJ 500 MG in SODIUM CHLOR 0.9% 250 ML INJ 250 ML IV SCH (22:18)
[2016-11-21] VITALS (7 sets, daily range): BP systolic 115–157; BP diastolic 55–75; PULSE 67–73; RESP 16–20; TEMP 97–98.7; O2SAT 93–98
[2016-11-21] MEDS: INSULIN ASPART SUPPLEMENTAL SCALE SQ SCH ×4 (06:39→21:00)
[2016-11-21 07:56] LABS: AUTOMATED NEUTROPHIL # 6.9 TH/MM3 (1.8-7.7); BASOPHIL % 0.4 % (0.0-2.0); EOSINOPHIL # 0.1 TH/MM3 (0-0.4); EOSINOPHIL % 1.2 % (0.0-4.0); HEMATOCRIT 36.5 % (39.0-51.0); HEMO FLAGS DIFF FINAL; LYMPH % 25.7 % (9.0-44.0); LYMPHOCYTE # 2.7 TH/MM3 (1.0-4.8); MEAN CELL VOLUME 86.6 FL (80.0-100.0); MEAN CORPUSCULAR HEMOGLOBIN 28.6 PG (27.0-34.0); NEUT % 64.7 % (16.0-70.0); PLATELET COUNT 241 TH/MM3 (150-450); RED BLOOD COUNT 4.21 MIL/MM3 (4.50-5.90); RED CELL DISTRIBUTION WIDTH 15.5 % (11.6-17.2); WHITE BLOOD COUNT 10.6 TH/MM3 (4.0-11.0)
[2016-11-21 08:02] LABS: INTERNATIONAL NORMALIZED RATIO 1.2 RATIO; PROTHROMBIN TIME - PATIENT 13.4 SEC (9.8-11.6)
[2016-11-21 08:18] LABS: BICARBONATE 25.3 MEQ/L (21.0-32.0); MAGNESIUM 1.8 MG/DL (1.5-2.5); POTASSIUM 3.4 MEQ/L (3.5-5.1)
[2016-11-21] MEDS: MULTIVITAMIN TAB PO SCH (08:39)
[2016-11-21] MEDS: LACTOBACILLUS ACIDOPHILUS 1 GM PACKET PO SCH ×3 (08:39→17:24)
[2016-11-21] MEDS: SODIUM CHLORIDE 0.9% FLUSH 10 ML FLUSH IV FLUSH SCH ×2 (08:40→21:00)
[2016-11-21] MEDS: METOPROLOL TARTRATE 50 MG TAB PO SCH (08:40)
[2016-11-21] MEDS: PATIENT OWN MEDICATION (Chlorthalidone 25 MG) PO SCH (08:40)
[2016-11-21] MEDS: LOSARTAN 50 MG TAB PO SCH (08:40)
[2016-11-21] MEDS: NEOMYCIN/POLYMYX/DEXAMETH OPHT SUSP 5 ML BTL LEFT EYE SCH (08:40)
[2016-11-21] MEDS: FAMOTIDINE 20 MG TAB PO SCH ×2 (08:40→22:06)
[2016-11-21] MEDS: ENOXAPARIN SODIUM 40 MG/0.4 ML SYRINGE SQ SCH (08:40)
[2016-11-21] MEDS: cloNIDine HCL 0.1 MG TAB PO SCH (08:40)
[2016-11-21] MEDS: RESP: ALBUTEROL 2.5 MG/IPRATROPIUM 0.5 MG NEB (SCH) NEB ×3 (09:08→19:46)
[2016-11-21] MEDS: SODIUM CHLOR 0.9% 1000 ML INJ 1,000 ML IV SCH (12:28)
[2016-11-21] MEDS: POTASSIUM CHLORIDE 25 MEQ EFFERVESCENT TAB NG SCH ×3 (16:19→22:05)
[2016-11-21] MEDS: WARFARIN SOD 4 MG TAB PO SCH (16:19)
--- NOTE | 2016-11-21 18:13 | HHI.PR ---
Subjective Interval History Alert, more verbal, active baseline, looks happy Review of Systems Constitutional Constitutional Remarks Appears negative however difficult to establish with certainty, has long-term difficulty speaking and right-sided weakness Vitals/Results Intake & Output 11/20/16 11/20/16 11/21/16 15:00 23:00 07:00 Intake Total 1632 ml 668 ml Output Total 700 ml 1300 ml Balance 932 ml 668 ml -1300 ml Intake Oral 360 ml IV Total 1272 ml 668 ml Output Urine Total 700 ml 1300 ml # Bowel Movements 1 0 Vital Signs Vital Signs Date Time Temp Pulse Resp B/P Pulse Ox O2 Delivery O2 Flow Rate FiO2 11/21/16 17:27 98.7 70 16 143/69 93 11/21/16 13:44 98.0 68 16 115/55 93 11/21/16 09:33 97.0 71 16 153/73 93 11/21/16 09:11 93 21 11/21/16 05:05 98.1 67 17 157/75 98 11/21/16 00:11 97.6 73 18 124/66 98 CBC/BMP: 11/21/16 0730 11/21/16 0730 Lab Results Laboratory Tests Test 11/21/16 07:30 White Blood Count 10.6 TH/MM3 Red Blood Count 4.21 MIL/MM3 Hemoglobin 12.1 GM/DL Hematocrit 36.5 % Mean Corpuscular Volume 86.6 FL Mean Corpuscular Hemoglobin 28.6 PG Mean Corpuscular Hemoglobin 33.0 % Concent Red Cell Distribution Width 15.5 % Platelet Count 241 TH/MM3 Mean Platelet Volume 8.6 FL Neutrophils (%) (Auto) 64.7 % Lymphocytes (%) (Auto) 25.7 % Monocytes (%) (Auto) 8.0 % Eosinophils (%) (Auto) 1.2 % Basophils (%) (Auto) 0.4 % Neutrophils # (Auto) 6.9 TH/MM3 Lymphocytes # (Auto) 2.7 TH/MM3 Monocytes # (Auto) 0.9 TH/MM3 Eosinophils # (Auto) 0.1 TH/MM3 Basophils # (Auto) 0.0 TH/MM3 CBC Comment DIFF FINAL Differential Comment Prothrombin Time 13.4 SEC Prothromb Time International 1.2 RATIO Ratio Sodium Level 141 MEQ/L Potassium Level 3.4 MEQ/L Chloride Level 108 MEQ/L Carbon Dioxide Level 25.3 MEQ/L Anion Gap 8 MEQ/L Blood Urea Nitrogen 10 MG/DL Creatinine 0.80 MG/DL Estimat Glomerular Filtration 96 ML/MIN Rate Random Glucose 105 MG/DL Calcium Level 8.7 MG/DL Phosphorus Level 2.5 MG/DL Magnesium Level 1.8 MG/DL Physical Exam General General Appearance: Well Developed, Comfortable, Obese Eyes Eye Exam: Pupils Reactive Ears & Nose Ears & Nose Exam: Nasal Mucosa [place] Throat Throat Exam: Oral Mucosa [place] & Moist Neck Neck Exam: Trachea Midline Pulmonary Resp Exam: Breath Sounds Equal Cardiology CV Exam: Normal Sinus Rhythm Gastrointestinal/Abdomen GI Exam: Bowel Sounds Present Musculoskeletal MS Remarks Aphasic with right-sided weakness Integumentary Skin Exam: Warm, Dry Extremeties Extremities Exam: Trace Edema Neurologic Neuro Exam: Alert, Awake Psychiatric Psych Exam: Appropriate Responses VTE Prophylaxis VTE Prophylaxis Meds: Heparin, Coumadin Assessment/Plan Assessment/Plan Assessment Hypokalemia Sepsis on admission Pseudo-Bacteremia Hypotension on admission, improved Tachycardia on admission, improved Acute kidney injury, improved Possible urinary infection, Bladder cancer, recent cystoscopy with excision/fulguration of bladder mass History of stroke on anticoagulation History of atrial fibrillation, tobacco abuse, COPD, obesity snf resident, DNR Management IV fluids IV antibiotics Discharge to [facility] tomorrow Target INR 2-3 DuoNeb as needed Follow renal function Follow culture results Continue anticoagulation DVT prophylaxis Discussed with nurse 25 minutes Lesa Jacob MD Nov 21, 2016 18:12
[2016-11-21] MEDS: TERAZOSIN HCL 5 MG CAP PO SCH (22:05)
[2016-11-21] MEDS: cefTRIAXone INJ 1,000 MG in SODIUM CHLORIDE 0.9% INJ 100 ML IV SCH (22:05)
[2016-11-21] MEDS: AZITHROMYCIN INJ 500 MG in SODIUM CHLOR 0.9% 250 ML INJ 250 ML IV SCH (22:16)
[2016-11-22] VITALS: BP 147/70; PULSE 77; RESP 22; TEMP 97.4; O2SAT 95
[2016-11-22] MEDS: ARTIFICIAL TEARS OPTH OINT 3.5 APPLIC/3.5 GM TUBO EACH EYE SCH (00:35)
[2016-11-22 04:00] VITALS: BP 140/68; PULSE 82; RESP 20; TEMP 97.9; O2SAT 96
[2016-11-22] MEDS: INSULIN ASPART SUPPLEMENTAL SCALE SQ SCH ×2 (05:08→12:16)
[2016-11-22 08:00] VITALS: BP 166/77; PULSE 73; RESP 20; TEMP 97.4; O2SAT 92
[2016-11-22] MEDS: RESP: ALBUTEROL 2.5 MG/IPRATROPIUM 0.5 MG NEB (SCH) NEB ×3 (08:31→15:45)
[2016-11-22 08:32] VITALS: O2SAT 96
[2016-11-22 08:42] LABS: INTERNATIONAL NORMALIZED RATIO 1.3 RATIO; PROTHROMBIN TIME - PATIENT 14.6 SEC (9.8-11.6)
[2016-11-22] MEDS: FAMOTIDINE 20 MG TAB PO SCH (09:00)
[2016-11-22] MEDS: NEOMYCIN/POLYMYX/DEXAMETH OPHT SUSP 5 ML BTL LEFT EYE SCH (09:00)
[2016-11-22 09:10] LABS: BICARBONATE 27.3 MEQ/L (21.0-32.0); POTASSIUM 3.6 MEQ/L (3.5-5.1)
[2016-11-22] MEDS: cloNIDine HCL 0.1 MG TAB PO SCH (09:19)
[2016-11-22] MEDS: METOPROLOL TARTRATE 50 MG TAB PO SCH (09:19)
[2016-11-22] MEDS: ENOXAPARIN SODIUM 40 MG/0.4 ML SYRINGE SQ SCH (09:19)
[2016-11-22] MEDS: MULTIVITAMIN TAB PO SCH (09:19)
[2016-11-22] MEDS: LOSARTAN 50 MG TAB PO SCH (09:19)
[2016-11-22] MEDS: LACTOBACILLUS ACIDOPHILUS 1 GM PACKET PO SCH ×2 (09:20→12:20)
[2016-11-22] MEDS: POTASSIUM CHLORIDE 25 MEQ EFFERVESCENT TAB NG SCH (09:20)
[2016-11-22] MEDS: SODIUM CHLORIDE 0.9% FLUSH 10 ML FLUSH IV FLUSH SCH (09:20)
[2016-11-22] MEDS: PATIENT OWN MEDICATION (Chlorthalidone 25 MG) PO SCH (09:20)
[2016-11-22 12:00] VITALS: BP 139/66; PULSE 75; RESP 18; TEMP 96.8; O2SAT 97
[2016-11-22] MEDS ORDERED: CEFT250T8 PO (12:48)
--- NOTE | 2016-11-22 12:48 | HHI.DCPOC ---
Discharge Care Plan Diagnosis: (1) Bladder cancer (2) UTI (urinary tract infection) (3) Sepsis Your Health Problems Are: Urinary Difficulties Goals to Promote Your Health * To prevent worsening of your condition and complications * To maintain your health at the optimal level Directions to Meet Your Goals Take your medications as prescribed Follow your dietary instruction Follow activity as directed Keep your appointments as scheduled Take your immunizations and boosters as scheduled If your symptoms worsen call your PCP, if no PCP go to Urgent Care Center or Emergency Room Smoking is Dangerous to Your Health. Avoid second hand smoke Call the 24-hour hour crisis hotline for domestic abuse at [facility]. [facility] Nov 22, 2016 12:48
--- NOTE | 2016-11-22 12:49 | HHI.DS ---
Discharge Summary Admission Date Nov 18, 2016 at 22:22 Admitting Diagnosis sepsis, UTI (1) Sepsis (2) UTI (urinary tract infection) (3) Bladder cancer (4) Chronic anticoagulation (5) Leukocytosis (6) Atrial fibrillation (7) History of CVA with residual deficit (8) Tobacco abuse (9) COPD (chronic obstructive pulmonary disease) Brief History This is a pleasant 71-year-old male with past medical history of bladder cancer , A. 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 Patient was sent from assisted living facility reported fevers. Patient has expressive aphasia, unable to provide any history. Information is obtained from the medical record. On 2016, patient underwent Cystoscopy, excisional biopsy bladder mass and fulguration of bladder mass site per Dr. Valladares. Patient has a chronic indwelling catheter. At the facility, he has been treated with Rocephin 1 g IM which was started on November 17, 2016 and was due to complete on 11/20/2016. It is not clear how high the fevers were. At this time, patient points to his lower abdomen when asked if in pain. There is no blood noted in the Zamarripa bag. Patient is on Coumadin as well as Lovenox for bridging, prior history of atrial fibrillation. Patient was evaluated in emergency room, BMP was significant for sodium 133, BUN 25, creatinine 1.54. Lactic acid was 2.5, today it is 1.9. CBC was remarkable for significant leukocytosis, WBC 21.2, this morning it is down to 14.6. There was no fever reported. Blood pressure was 9452, slightly tachycardic heart rate 105. Cultures were obtained, patient was started on empiric antibiotics. CT of the abdomen was done showing gallbladder is present and contained stones. Patient denies any abdominal discomfort, no nausea no vomiting. At this time, patient is resting comfortably , has no complaints. Patient is admitted for further evaluation and treatment. CBC/BMP: 11/21/16 0730 11/22/16 0757 Significant Findings Laboratory Tests Test 11/20/16 11/20/16 11/20/16 11/21/16 08:28 09:28 12:01 07:30 Prothrombin Time 11.8 SEC 12.1 SEC 13.4 SEC (9.8-11.6) (9.8-11.6) (9.8-11.6) White Blood Count 12.2 TH/MM3 (4.0-11.0) Red Blood Count 4.21 MIL/MM3 4.21 MIL/MM3 (4.50-5.90) (4.50-5.90) Hemoglobin 11.9 GM/DL 12.1 GM/DL (13.0-17.0) (13.0-17.0) Hematocrit 36.7 % 36.5 % (39.0-51.0) (39.0-51.0) Potassium Level 3.4 MEQ/L (3.5-5.1) Chloride Level 108 MEQ/L (98-107) Test 11/22/16 07:57 Prothrombin Time 14.6 SEC (9.8-11.6) Pt Condition on Discharge: Stable Discharge Disposition: Discharge to SNF Discharge Instructions DIET: Follow Instructions for: Heart Healthy Diet Activities you can perform: Weight Bearing as Jing [facility]ene Nov 22, 2016 12:49
--- NOTE | 2016-11-22 12:49 | HHI.PR ---
Subjective Remarks Patient awake, oriented to self expressive aphasia Smiling, pleasant No fever No acute changes overnight Objective Objective Results - Vital Signs Date Time Temp Pulse Resp B/P Pulse Ox O2 Delivery O2 Flow Rate FiO2 11/22/16 12:00 96.8 75 18 139/66 97 11/22/16 08:32 96 11/22/16 08:00 97.4 73 20 166/77 92 11/22/16 04:00 97.9 82 20 140/68 96 11/22/16 00:00 97.4 77 22 147/70 95 11/21/16 20:00 98.7 67 20 149/67 96 11/21/16 17:27 98.7 70 16 143/69 93 11/21/16 13:44 98.0 68 16 115/55 93 I/O 11/21/16 11/21/16 11/21/16 11/22/16 11/22/16 11/22/16 07:00 15:00 23:00 07:00 15:00 23:00 Intake Total 480 ml 1100 ml Output Total 1300 ml 900 ml 450 ml Balance -1300 ml -420 ml 650 ml Intake Oral 480 ml IV Total 1100 ml Output Urine Total 1300 ml 900 ml 450 ml # Bowel Movements 0 1 Result Diagram: 11/21/16 0730 11/22/16 0757 Imaging Last Impressions Chest X-Ray 11/18/16 1938 Signed Impressions: Service Date/Time: November 20:09 - CONCLUSION: No acute disease. Wali Melo MD Abdomen/Pelvis CT 11/18/16 0000 Signed Impressions: Service Date/Time: November 21:20 - CONCLUSION: Gallbladder is present and contains stones. No definite acute CT findings. Wali Melo MD Other Results Laboratory Tests Test 11/22/16 07:57 Prothrombin Time 14.6 Prothromb Time International 1.3 Ratio Sodium Level 141 Potassium Level 3.6 Chloride Level 107 Carbon Dioxide Level 27.3 Anion Gap 7 Blood Urea Nitrogen 11 Creatinine 0.84 Estimat Glomerular Filtration 91 Rate Random Glucose 101 Calcium Level 8.9 Date/Time Procedure Status Source Growth 11/18/16 21:14 Urine Culture - Final Complete Urine Random Urine NO GROWTH IN 48 HOURS. 11/18/16 19:50 Aerobic Blood Culture - Preliminary Resulted Blood Peripheral NO GROWTH IN 4 DAYS 11/18/16 19:50 Anaerobic Blood Culture - Preliminary Resulted Blood Peripheral NO GROWTH IN 4 DAYS ROS General: Other (12 point review of systems difficult to completely) Physical Exam Physical Exam GENERAL: This is a well-nourished, well-developed patient, in no apparent distress. SKIN: No rashes, ecchymoses or lesions. Cool and dry. HEAD: Atraumatic. Normocephalic. No temporal or scalp tenderness. EYES: Pupils equal round and reactive. Extraocular motions intact. No scleral icterus. No injection or drainage. ENT: Nose without bleeding, purulent drainage or septal hematoma. Throat without erythema, tonsillar hypertrophy or exudate. Uvula midline. Airway patent. NECK: Trachea midline. No JVD or lymphadenopathy. Supple, nontender, no meningeal signs. CARDIOVASCULAR: S1 and S2, irregularly irregular RESPIRATORY: Expiratory wheezes. GASTROINTESTINAL: Abdomen soft, non-tender, nondistended. No hepato-splenomegaly , or palpable masses. No guarding. : Zamarripa catheter in place MUSCULOSKELETAL: Extremities without clubbing, cyanosis, or edema. No joint tenderness, effusion, or edema noted. No calf tenderness. Negative Homans sign bilaterally. NEUROLOGICAL: Awake and alert. Expressive aphasia. Right-sided hemiplegia. Urinary Catheter: Yes Assessment to: Continue Zamarripa insert reason: Obstruction/Retention Vascular Central Line Catheter: No A/P Diagnosis: (1) Sepsis (2) UTI (urinary tract infection) (3) Bladder cancer (4) Chronic anticoagulation (5) Leukocytosis (6) Atrial fibrillation (7) History of CVA with residual deficit (8) Tobacco abuse (9) COPD (chronic obstructive pulmonary disease) Assessment and Plan 70-year-old male diagnosed with bladder cancer,s/p cystoscopy excisional biopsy bladder mass and fulguration of bladder mass site 11/15/2016, has chronic indwelling catheter. [facility] Was being treated for UTI. In the ED evaluated, found with leukocytosis, lactic acidosis, hypotension, tachycardia, recurrent UTI. -off IVF -Continue antibiotics, follow cultures, staph coagulase negative -Possibly pseudo-bacteremia -Stable, afebrile, continue with oral antibiotics at SNF rmal CT findings of stones and gallbladder, asymptomatic -Continue to monitor -HIDA scan ordered, no acute findings Acute renal injury, possibly secondary to sepsis, dehydration. Repeat BMP with improved creatinine Discontinue IV fluids Renal function state COPD, noted with mild wheezing, no cough. Patient continues to smoke. Tobacco abuse counseling DuoNeb's 4 times a day and when necessary. Afib, stable -Continue Lopressor -Telemetry monitoring -Continue Coumadin, INR subtherapeutic. On Lovenox for bridging, will continue. -INR remains subtherapeutic, continue with Coumadin and Lovenox at SNF Hx CVA with right sided hemiparesis -stable, continue home medications Coumadin and Lovenox for DVT prophylaxis Afebrile, lactic acid back to normal Hemodynamically stable, patient is stable to be discharged back to SNF Discharge to SNF today Diet-heart healthy Activity-as tolerated F/U PCP D/W RN D/W Dr. Jacob D/W pt. This patient was seen by myself and Dr. Jacob, this note is written on his behalf. Problem Qualifiers (1) Sepsis: Qualified Code: A41.9 - Sepsis, due to unspecified organism (2) UTI (urinary tract infection): Qualified Code: N39.0 - Urinary tract infection with hematuria, site unspecified (3) COPD (chronic obstructive pulmonary disease): Qualified Code: J44.9 - Chronic obstructive pulmonary disease, unspecified COPD type Jing Petit Nov 22, 2016 12:49
--- NOTE | 2016-11-22 13:57 | HHI.DS ---
Discharge Summary Admission Date Nov 18, 2016 at 22:22 Discharge Date: Nov 22, 2016 Admitting Diagnosis sepsis, UTI (1) Sepsis (2) UTI (urinary tract infection) (3) Bladder cancer (4) Chronic anticoagulation (5) Leukocytosis (6) Atrial fibrillation (7) History of CVA with residual deficit (8) Tobacco abuse (9) COPD (chronic obstructive pulmonary disease) CBC/BMP: 11/21/16 0730 11/22/16 0757 Significant Findings Laboratory Tests Test 11/20/16 11/20/16 11/20/16 11/21/16 08:28 09:28 12:01 07:30 Prothrombin Time 11.8 SEC 12.1 SEC 13.4 SEC (9.8-11.6) (9.8-11.6) (9.8-11.6) White Blood Count 12.2 TH/MM3 (4.0-11.0) Red Blood Count 4.21 MIL/MM3 4.21 MIL/MM3 (4.50-5.90) (4.50-5.90) Hemoglobin 11.9 GM/DL 12.1 GM/DL (13.0-17.0) (13.0-17.0) Hematocrit 36.7 % 36.5 % (39.0-51.0) (39.0-51.0) Potassium Level 3.4 MEQ/L (3.5-5.1) Chloride Level 108 MEQ/L (98-107) Test 11/22/16 07:57 Prothrombin Time 14.6 SEC (9.8-11.6) Hospital Course This is a pleasant 71-year-old male with past medical history of bladder cancer , A. 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 Patient was sent from assisted living facility reported fevers. Patient has expressive aphasia, unable to provide any history. Information is obtained from the medical record. On 2016, patient underwent Cystoscopy, excisional biopsy bladder mass and fulguration of bladder mass site per Dr. Valladares. Patient has a chronic indwelling catheter. At the facility, he has been treated with Rocephin 1 g IM which was started on November 17, 2016 and was due to complete on 11/20/2016. It is not clear how high the fevers were. Patient pointed to his lower abdomen when asked if in pain. There was no blood noted in the Zamarripa bag. Patient was on Coumadin as well as Lovenox for bridging, prior history of atrial fibrillation. Patient was evaluated in emergency room, BMP was significant for sodium 133, BUN 25, creatinine 1.54. Lactic acid was 2.5,then went down the next day to 1.9. CBC was remarkable for significant leukocytosis, WBC 21.2. There was no fever reported. Blood pressure was 94/52, slightly tachycardic heart rate 105. Cultures were obtained, patient was started on empiric antibiotics. CT of the abdomen was done showing gallbladder is present and contained stones. Patient denied any abdominal discomfort, no nausea no vomiting. Patient was admitted for further evaluation and treatment. (1) Sepsis (2) UTI (urinary tract infection) (3) Bladder cancer (4) Chronic anticoagulation (5) Leukocytosis (6) Atrial fibrillation (7) History of CVA with residual deficit (8) Tobacco abuse (9) COPD (chronic obstructive pulmonary disease) During the course of the hospitalization, the following took place: 70-year-old male diagnosed with bladder cancer,s/p cystoscopy excisional biopsy bladder mass and fulguration of bladder mass site 11/15/2016, has chronic indwelling catheter. Patient [facility] for fever. Was being treated for UTI. In the ED evaluated, found with leukocytosis, lactic acidosis, hypotension, tachycardia, recurrent UTI. Admitted with sepsis. -initially put on IVF -Continued antibiotics, followed cultures, staph coagulase negative -Possibly pseudo-bacteremia -WBC improved, lactic acide coming down. -was stable, afebrile, continue with oral antibiotics at [facility] CT findings of stones and gallbladder, asymptomatic -HIDA scan ordered, no acute findings Acute renal injury, possibly secondary to sepsis, dehydration. Repeat BMP with improved creatinine -given IVF -BMP followed, creat improved. COPD, noted with mild wheezing, no cough. Patient continues to smoke. Tobacco abuse counseling DuoNeb's 4 times a day and when necessary. Afib, stable -Continue Lopressor -Telemetry monitoring -Continue Coumadin, INR subtherapeutic. On Lovenox for bridging, will continue. -INR remained subtherapeutic, continue with Coumadin and Lovenox at [facility] Hx CVA with right sided hemiparesis -stable, continue home medications Coumadin and Lovenox for DVT prophylaxis Afebrile, lactic acid back to normal Hemodynamically stable, patient was stable to be discharged back to SNF Discharge to SNF Diet-heart healthy Activity-as tolerated F/U PCP Pt Condition on Discharge: Stable Discharge Disposition: Discharge to SNF Discharge Instructions DIET: Follow Instructions for: Heart Healthy Diet Activities you can perform: Weight Bearing as Yeison Follow up Referrals: PCP Follow-up Urology New Medications: Cefuroxime (Ceftin) 250 Mg Tab 250 MG PO BID Infection #14 Ref 0 TAB Continued Medications: Acetaminophen (Acetaminophen) 500 Mg Tab 650 MG PO Q6H PRN PAIN SCALE 1 TO 6 Ref 0 TAB Cephalexin (Keflex) 250 Mg Cap 250 MG PO TID Infection #15 Ref 0 CAP Chlorthalidone (Chlorthalidone) 25 Mg Tab 25 MG PO DAILY Ref 0 TAB Clonidine (Clonidine) 0.1 Mg Tab 0.1 MG PO DAILY Blood Pressure Management #60 Ref 0 TAB Enoxaparin Inj (Enoxaparin Inj) 40 Mg/0.4 Ml Syr 40 MG SQ DAILY Blood Clot Prevention Ref 0 SYRINGE Lactobacillus Acidophilus (Lactobacillus Acidophilus) 1 Pkt 1 PKT PO TID Nutritional Supplement #12 Ref 0 PKT Losartan (Cozaar) 50 Mg Tab 50 MG PO DAILY Blood Pressure Management #30 Ref 0 TAB Metformin (Metformin) 500 Mg Tab 500 MG PO BIDPC With meals Blood Sugar Management #60 Ref 0 TAB Metoprolol Tartrate (Metoprolol Tartrate) 50 Mg Tab 50 MG PO DAILY #30 Ref 0 TAB Multiple Vitamin (Thera) 1 Tab Tab 1 TAB PO DAILY Dlmnlhhl-Pgiizaegh-Utfihllrnsnle Opth Drops (Maxitrol Opth Drops) 3.5-10,000- 0.1 Mg-Units-% Susp 1 DROP LEFT EYE DAILY Infection #1 Ref 0 BOTTLE Terazosin (Terazosin) 5 Mg Cap 5 MG PO HS #30 Ref 0 CAP Warfarin (Coumadin) 4 Mg Tab 4 MG PO DAILY Prevent Blood Clot #30 Ref 0 TAB White Petrolatum-Mineral Oil Opth Oint 83-15% (Artificial Tears Opth Oint) 83-15 % Oint 1 APPLIC EACH EYE HS Pull down lower eyelid & apply 1/4 inch to inside of eyelid. Dry Eye #3.5 Ref 0 GM ([beer]) 1 Discontinued Medications: Ceftriaxone Inj (Ceftriaxone Inj) 1 Gm Inj 1 GM IV DAILY Infection BAG Hydrocodone-Acetaminophen (Lortab) 5-325 Mg Tab 1 TAB PO Q6H PRN PAIN Ref 0 TAB Jing Petit [employer] Nov 22, 2016 13:57
[2016-11-22] MEDS: WARFARIN SOD 4 MG TAB PO SCH (15:15)
[2016-11-22] MEDS ORDERED: CEFU250T PO (15:53)
[2016-11-22] MEDS ORDERED: WARFARIN SOD 1 MG TAB PO SCH (16:00)
== END 2016-11-22 16:07 | DRG 872 ==
LOC: NEPC 18:45 → NEDA 22:22 → NEPFCDU 11-19 00:38 → N05B 11-19 15:18
PROVIDERS: ADMIT Specialist; ATTEND Specialist
DX: A41.9 Sepsis, unspecified organism (principal); N17.9 Acute kidney failure, unspecified; I95.9 Hypotension, unspecified; I69.351 Hemiplegia and hemiparesis following cerebral infarction affecting right dominant side; I69.320 Aphasia following cerebral infarction; I48.91 Unspecified atrial fibrillation; J44.9 Chronic obstructive pulmonary disease, unspecified; N39.0 Urinary tract infection, site not specified; Z79.01 Long term (current) use of anticoagulants; I10 Essential (primary) hypertension; E86.0 Dehydration; Z85.51 Personal history of malignant neoplasm of bladder; E87.6 Hypokalemia; E11.9 Type 2 diabetes mellitus without complications; Z79.84 Long term (current) use of oral hypoglycemic drugs; Z87.11 Personal history of peptic ulcer disease; K80.20 Calculus of gallbladder without cholecystitis without obstruction; F17.200 Nicotine dependence, unspecified, uncomplicated; Z66 Do not resuscitate; R00.0 Tachycardia, unspecified; E66.9 Obesity, unspecified; Z68.35 Body mass index [BMI] 35.0-35.9, adult
CPT/HCPCS: 71010; 74176; 78226; 80048; 80053; 81001; 82948; 83605; 83735; 84100; 85025; 85027; 85610; 85730; 87040; 87077; 87086; 87186; 87205; 93005; 94640; 94664; 96365; 96375; A9537; J0456; J0696; J1644; J1650; J1815; J7030; J7050

== ENCOUNTER 2017-02-12 17:35 | Inpatient (IN) | payer OTHER, MEDICARE ==
[~2017-02-12] VITALS: Ht 157.5 cm; Wt 82.5 kg
[~2017-02-12 17:35] MED LIST changes: +ACET500T3 PO; +CEFT250T8 PO; -HYDR-3533 PO; +LACTPOW68 PO; +WHIT15OI EACH EYE; +beer
[2017-02-12 17:47] VITALS: BP 149/68; PULSE 88; RESP 18; TEMP 98.2; O2SAT 95
[2017-02-12 17:59] VITALS: BP 149/68; PULSE 98; RESP 18; TEMP 98.2; O2SAT 95
[2017-02-12] MEDS ORDERED: MORPHINE SULFATE 4 MG/ML INJ IV PUSH ONE (18:00)
[2017-02-12] MEDS ORDERED: ONDANSETRON HCL 4 MG/2 ML VIAL IVP ONE (18:00)
--- NOTE | 2017-02-12 18:06 | PD ---
HPI Chief Complaint: Hip Injury Time Seen by Provider: 17:46 Travel History International Travel<30 days: No Contact w/Intl Traveler<30days: No Traveled to known affect area: No History of Present Illness HPI 71 y/o male presents with outpatient x-ray that shows reading of right intertrochanteric hip fracture. He states he fell. When I ask him how he fell he states he went boom. Patient is a poor historian. When I ask him if he hurts anywhere else he points to his right shoulder and wrist. When I ask him if he hit his head he states yes. When I ask him if he is on blood thinners he states yes. I asked him which ones he states yes. Records with patient showed that he just completed a course of Bactrim for urinary tract infection on the sixth. He was on Coumadin and it looks like he got switched to eliquis on his medication records PFSH Past Medical History Narrative Medical by records Hx Anticoagulant Therapy: Yes Arthritis: No Asthma: No Autoimmune Disease: No Blood Disorders: Yes (TAKES COUMADIN) Anxiety: No Depression: No Heart Rhythm Problems: No Cancer: No Cardiovascular Problems: Yes High Cholesterol: No Chemotherapy: No Chest Pain: No Congestive Heart Failure: No COPD: No Cerebrovascular Accident: Yes (2003 CVA) Diabetes: Yes Endocrine: Yes Gastrointestinal Disorders: No Glaucoma: No Genitourinary: Yes (HEMATURIA) Hepatitis: No Hiatal Hernia: No Hypertension: Yes Immune Disorder: No Musculoskeletal: No Neurologic: Yes (RT SIDE FLACCID, APHASIA, CVA) Psychiatric: No Reproductive: No Respiratory: Yes Immunizations Current: Yes Sleep Apnea: No Thyroid Disease: No Ulcer: Yes Past Surgical History Narrative Surgical by records AICD: No Genitourinary Surgery: No Joint Replacement: No Pacemaker: No Other Surgery: Yes (BLADDER TUMOR REMOVED) Social History Alcohol Use: No Tobacco Use: Yes (2 PPD) Substance Use: No Allergies-Medications (Allergen,Severity, Reaction): Coded Allergies: No Known Allergies (Verified , 02/12/17) Reported Meds & Prescriptions Reported Meds & Active Scripts Active Reported Terazosin (Terazosin HCl) 5 Mg Cap 5 Mg PO HS Prednisone 5 Mg Tab 20 Mg PO ONCE 30MG ONCE ON 02/10/2017, 25MG ONCE ON 02/11/2017 AND 20MG ONCE ON 02/12/2017 Oxybutynin ER 24 HR (Oxybutynin Chloride) 5 Mg Tab 5 Mg PO DAILY Natural Balance Tears Opth Drops (Artificial Tear Solution Opth Drops) 0.1-0.3% Soln 1 Drop EACH EYE HS Lortab (Hydrocodone-Acetaminophen) 5-325 Mg Tab 1-2 Tab PO Q6H PRN Eliquis (Apixaban) 5 Mg Tab 5 Mg PO BID Artificial Tears Opth Oint (White Petrolatum-Mineral Oil Opth Oint 83-15%) 83-15 % Oint 1 Applic EACH EYE HS Pull down lower eyelid & apply 1/4 inch to inside of eyelid. Thera (Multiple Vitamin) 1 Tab Tab 1 Tab PO DAILY Cozaar (Losartan Potassium) 50 Mg Tab 50 Mg PO DAILY Metoprolol Tartrate 50 Mg Tab 50 Mg PO DAILY Metformin (Metformin HCl) 500 Mg Tab 500 Mg PO BID With meals Clonidine (Clonidine HCl) 0.1 Mg Tab 0.1 Mg PO DAILY Chlorthalidone 25 Mg Tab 25 Mg PO DAILY Review of Systems ROS Limitations: Poor Historian Physical Exam Exam Limitations: Poor Historian Narrative GENERAL: Well-nourished, well-developed patient. SKIN: Warm and dry. HEAD: Normocephalic EYES: No injection or drainage. ENT: No nasal drainage noted. NECK: Supple, trachea midline.no pain with ROM CARDIOVASCULAR: Regular rate and rhythm RESPIRATORY: Breath sounds equal bilaterally. No accessory muscle use. GASTROINTESTINAL: Abdomen soft, non-tender, nondistended. EXTREMITIES: Pain with palpation of right shoulder, wrist, right hip, no pain with other joints , neurovascularly intact, no lacerations over, compartments soft. Right hip is shortened and rotated BACK: Nontender without obvious deformity. NEUROLOGICAL: Awake. Clear speech, prior deficit noted Data Data Last Documented VS Vital Signs Date Time Temp Pulse Resp B/P Pulse Ox O2 Delivery O2 Flow Rate FiO2 02/12/17 17:59 98.2 98 18 149/68 95 Room Air Orders Electrocardiogram (02/12/17 17:55) Complete Blood Count With Diff (02/12/17 17:55) Comprehensive Metabolic Panel (02/12/17 17:55) Prothrombin Time / Inr (Pt) (02/12/17 17:55) Act Partial Throm Time (Ptt) (02/12/17 17:55) Urinalysis - C+S If Indicated (7/8/17 17:55) Type And Screen (02/12/17 17:55) Chest, Single Ap (02/12/17 17:55) Hip, Uni(Ap&Lat) W Ap Pelvis (02/12/17 17:55) Iv Access Insert/Monitor (02/12/17 17:55) Oximetry (02/12/17 17:55) Ecg Monitoring (02/12/17 17:55) Morphine Inj (Morphine Inj) (02/12/17 18:00) Ondansetron Inj (Zofran Inj) (02/12/17 18:00) Sodium Chloride 0.9% Flush (Ns Flush) (02/12/17 18:00) Diet Npo (02/12/17 Dinner) Shoulder, Complete (>2vws) (02/12/17 17:55) Wrist, Complete (Tni3vuh) (02/12/17 17:55) Consult Orthopedic (02/12/17 ) Ct Brain W/O Iv Contrast(Rout) (02/12/17 ) Morphine Inj (Morphine Inj) (02/12/17 18:15) (Hub Use Only)Inp Phy Cons/Ref (02/12/17 ) Continue Zamarripa/Suprapubic Cath (02/12/17 18:57) Ceftriaxone Inj (Rocephin Inj) (02/12/17 19:15) Blood Culture (02/12/17 19:13) Ceftriaxone Inj (Rocephin Inj) (02/12/17 19:30) Admit Order (Ed Use Only) (02/12/17 19:25) Labs Laboratory Tests Test 02/12/17 02/12/17 18:00 18:45 Prothrombin Time 11.4 SEC Prothromb Time International 1.0 RATIO Ratio Activated Partial 35.7 SEC Thromboplast Time Sodium Level 132 MEQ/L Potassium Level 4.5 MEQ/L Chloride Level 97 MEQ/L Carbon Dioxide Level 26.2 MEQ/L Anion Gap 9 MEQ/L Blood Urea Nitrogen 46 MG/DL Creatinine 1.64 MG/DL Estimat Glomerular Filtration 42 ML/MIN Rate Random Glucose 97 MG/DL Calcium Level 9.6 MG/DL Total Bilirubin 0.3 MG/DL Aspartate Amino Transf 30 U/L (AST/SGOT) Alanine Aminotransferase 43 U/L (ALT/SGPT) Alkaline Phosphatase 74 U/L Total Protein 8.8 GM/DL Albumin 3.2 GM/DL Blood Type AB POSITIVE Antibody Screen NEGATIVE White Blood Count 18.2 TH/MM3 Red Blood Count 4.22 MIL/MM3 Hemoglobin 12.2 GM/DL Hematocrit 36.4 % Mean Corpuscular Volume 86.3 FL Mean Corpuscular Hemoglobin 28.9 PG Mean Corpuscular Hemoglobin 33.5 % Concent Red Cell Distribution Width 14.9 % Platelet Count 394 TH/MM3 Mean Platelet Volume 8.4 FL Neutrophils (%) (Auto) 84.0 % Lymphocytes (%) (Auto) 11.3 % Monocytes (%) (Auto) 4.5 % Eosinophils (%) (Auto) 0.1 % Basophils (%) (Auto) 0.1 % Neutrophils # (Auto) 15.3 TH/MM3 Lymphocytes # (Auto) 2.1 TH/MM3 Monocytes # (Auto) 0.8 TH/MM3 Eosinophils # (Auto) 0.0 TH/MM3 Basophils # (Auto) 0.0 TH/MM3 CBC Comment DIFF FINAL Differential Comment Urine Color YELLOW Urine Turbidity HAZY Urine pH 6.5 Urine Specific Williams 1.016 Urine Protein 30 mg/dL Urine Glucose (UA) NEG mg/dL Urine Ketones NEG mg/dL Urine Occult Blood MOD Urine Nitrite NEG Urine Bilirubin NEG Urine Urobilinogen LESS THAN 2.0 MG/DL Urine Leukocyte Esterase LARGE Urine RBC 167 /hpf Urine WBC 82 /hpf Urine Mucus FEW /lpf Microscopic Urinalysis Comment CATH-CULTURE IND MDM Medical Decision Making Medical Screen Exam Complete: Yes Emergency Medical Condition: Yes Medical Record Reviewed: Yes (past history confirmed) Interpretation(s) CBC & BMP Diagram 02/12/17 18:00 Last [address] 02/12/17 0000 Signed Impressions: Service Date/Time: Sunday, February 12, 2017 18:31 - CONCLUSION: 1. Large area of encephalomalacia involving the left middle cerebral artery territory. 2. No acute hemorrhage or mass effect. Pa Montesinos MD Differential Diagnosis Fracture, strain, bleed, UTI Narrative Course Will check blood work, urinalysis, CT brain, right shoulder and wrist x-ray and repeat right hip x-ray and dose with morphine for pain control Physician Communication Physician Communication dr tucker to follow ua and xrays and admit Diagnosis Primary Impression: Hip fracture Qualified Code: S72.001A - Hip fracture, right, closed, initial encounter Admitting Information Admitting Physician Requests: it Mini Gupta MD Feb 12, 2017 18:06
[2017-02-12] MEDS ORDERED: MORPHINE SULFATE 8 MG/ML INJ IV PUSH ONE (18:15)
[2017-02-12] MEDS ORDERED: OXYB5TAB PO (18:25)
[2017-02-12] MEDS ORDERED: HYDR-3533 PO (18:25)
[2017-02-12] MEDS ORDERED: ARTI99.0 EACH EYE (18:25)
[2017-02-12] MEDS ORDERED: PRED5TAB PO (18:25)
[2017-02-12] MEDS ORDERED: APIX5TAB PO (18:25)
[2017-02-12] MEDS ORDERED: TERA5CAP3 PO (18:25)
[2017-02-12 18:39] LABS: AUTOMATED NEUTROPHIL # 15.3 TH/MM3 (1.8-7.7); BASOPHIL % 0.1 % (0.0-2.0); EOSINOPHIL % 0.1 % (0.0-4.0); HEMATOCRIT 36.4 % (39.0-51.0); HEMO FLAGS DIFF FINAL; LYMPH % 11.3 % (9.0-44.0); LYMPHOCYTE # 2.1 TH/MM3 (1.0-4.8); MEAN CELL VOLUME 86.3 FL (80.0-100.0); MEAN CORPUSCULAR HEMOGLOBIN 28.9 PG (27.0-34.0); MEAN CORPUSCULAR HGB CONC 33.5 % (32.0-36.0); MONO % 4.5 % (0.0-8.0); PLATELET COUNT 394 TH/MM3 (150-450); RED BLOOD COUNT 4.22 MIL/MM3 (4.50-5.90); RED CELL DISTRIBUTION WIDTH 14.9 % (11.6-17.2); WHITE BLOOD COUNT 18.2 TH/MM3 (4.0-11.0)
[2017-02-12 18:42] LABS: APTT (PATIENT) 35.7 SEC (24.3-30.1); PROTHROMBIN TIME - PATIENT 11.4 SEC (9.8-11.6)
[2017-02-12 18:51] LABS: ALT (GPT) 43 U/L (12-78); ANION GAP 9 MEQ/L (5-15); AST (GOT) 30 U/L (15-37); BICARBONATE 26.2 MEQ/L (21.0-32.0); BLOOD UREA NITROGEN 46 MG/DL (7-18); CHLORIDE 97 MEQ/L (98-107); GLOMERULAR FILTRATION RATE 42 ML/MIN (>89); POTASSIUM 4.5 MEQ/L (3.5-5.1); SODIUM (NA) 132 MEQ/L (136-145)
--- NOTE | 2017-02-12 18:51 | RADRPT ---
EXAM DATE/TIME: 02/12/2017 18:31 [facility] COMPARISON: No previous studies available for comparison. INDICATIONS : Trauma, fall today. RADIATION DOSE: 32.53 CTDIvol (mGy) MEDICAL HISTORY : Stroke. Hypertension. diabetes SURGICAL HISTORY : None. ENCOUNTER: Initial ACUITY: 1 day PAIN SCALE: 0/10 LOCATION: Bilateral head TECHNIQUE: Multiple contiguous axial images were obtained of the head. Using automated exposure control and adj ustment of the mA and/or kV according to patient size, radiation dose was kept as low as reasonably a chievable to obtain optimal diagnostic quality images. DICOM format image data is available electro nically for review and comparison. FINDINGS: There is a large area of encephalomalacia involving left middle cerebral artery territory includ ing portions of the frontal, temporal and parietal lobes. There is ex vacuo change involving the left lateral ventricle. There is diffuse moderate atrophic change with sulcal prominence. There is no acu te hemorrhage, mass effect or midline shift. No extra-axial fluid collections are identified. The bon y structures are intact. CONCLUSION: 1. Large area of encephalomalacia involving the left middle cerebral artery territory. 2. No acute hemorrhage or mass effect. Pa Montesinos MD on February 12, 2017 at 18:48 Board Certified Radiologist. This report was verified electronically.
[2017-02-12 18:53] LABS: ALKALINE PHOSPHATASE 74 U/L (45-117); TOTAL BILIRUBIN ADULT 0.3 MG/DL (0.2-1.0)
--- NOTE | 2017-02-12 19:00 | RADRPT ---
EXAM DATE/TIME: 02/12/2017 18:19 [facility] COMPARISON: CHEST SINGLE AP, November 18, 2016, 20:09. INDICATIONS : Trauma, presumed fall, hip fracture, pre op MEDICAL HISTORY : Stroke. Chronic obstructive pulmonary disease. Carcinoma, bladder. SURGICAL HISTORY : Cystoscopy ENCOUNTER: Initial ACUITY: 2 days PAIN SCORE: Non-responsive. LOCATION: Bilateral chest FINDINGS: A single view of the chest demonstrates the lungs to be symmetrically aerated without evidence of mas s, infiltrate or effusion. Atherosclerotic calcifications are present in the aorta. There are multip le overlying electrocardiogram leads. The cardiomediastinal contours are unremarkable. Osseous struc tures are intact. CONCLUSION: No acute disease. Pa Montesinos MD on February 12, 2017 at 18:58 Board Certified Radiologist. This report was verified electronically.
--- NOTE | 2017-02-12 19:01 | RADRPT ---
EXAM DATE/TIME: 02/12/2017 18:12 [facility] COMPARISON: No previous studies available for comparison. INDICATIONS : Trauma, presumed fall, hip fracture MEDICAL HISTORY : Stroke. Chronic obstructive pulmonary disease. Carcinoma, bladder SURGICAL HISTORY : None. ENCOUNTER: Initial ACUITY: 2 days PAIN SCORE: 8/10 LOCATION: Right hip FINDINGS: The AP view the pelvis was obtained as well as AP and slightly oblique views of the right hip. This d emonstrates a comminuted fracture deformity involving the right intertrochanteric region with one of the fractures extending through the medial cortex approximately 3 cm below the trochanter. The fractu re fragments are distracted up to approximately a centimeter. There is overlying soft tissue swelling and no abnormal angulation. There is diffuse osteopenia. The acetabulum and right pubic rami are int act. CONCLUSION: Comminuted right intertrochanteric fracture. Pa Montesinos MD on February 12, 2017 at 18:58 Board Certified Radiologist. This report was verified electronically.
--- NOTE | 2017-02-12 19:02 | RADRPT ---
EXAM DATE/TIME: 02/12/2017 18:15 [facility] COMPARISON: No previous studies available for comparison. INDICATIONS : Trauma, presumed fall. stiff right shoulder MEDICAL HISTORY : Stroke. Chronic obstructive pulmonary disease. Carcinoma, bladder SURGICAL HISTORY : None. ENCOUNTER: Initial ACUITY: 2 days PAIN SCORE: Non-responsive. LOCATION: Right shoulder FINDINGS: Multiple view examination of the right shoulder demonstrates no evidence of fracture or dislocation. The glenohumeral and acromioclavicular joints are maintained. There is normal range of motion betwe en internal and external rotation. There is diffuse osteopenia. CONCLUSION: Osteopenia with no acute fracture or malalignment. Pa Montesinos MD on February 12, 2017 at 19:00 Board Certified Radiologist. This report was verified electronically.
--- NOTE | 2017-02-12 19:03 | RADRPT ---
EXAM DATE/TIME: 02/12/2017 18:21 [facility] COMPARISON: No previous studies available for comparison. INDICATIONS : Trauma, presumed fall, stiff right extremity MEDICAL HISTORY : Stroke. Chronic obstructive pulmonary disease. Carcinoma, bladder SURGICAL HISTORY : None. ENCOUNTER: Initial ACUITY: 2 days PAIN SCORE: Non-responsive. LOCATION: Right wrist FINDINGS: Multiple views of the right wrist were obtained and demonstrate diffuse osteopenia and mild to modera te degenerative change with sclerosis and mild hypertrophic spurring. There is no acute fracture or m alalignment. The distal radius and ulna are intact. There are vascular calcifications. CONCLUSION: 1. No acute fracture or malalignment. 2. Osteopenia and osteoarthritic change. Pa Montesinos MD on February 12, 2017 at 19:01 Board Certified Radiologist. This report was verified electronically.
[2017-02-12] MEDS ORDERED: cefTRIAXone INJ 2,000 MG in SODIUM CHLORIDE 0.9% INJ 100 ML IV ONE (19:15)
--- NOTE | 2017-02-12 19:28 | PD ---
Physical Exam Date Seen by Provider: Feb 12, 2017 Time Seen by Provider: 19:27 Narrative 71-year-old male came to the emergency room with a right hip fracture. He was seen by the previous ER physician. Please refer to her history and physical regarding further details. Patient was given pain medication. The sign out to me was to follow-up on the x-ray and CAT scan report and UA. Patient has leukocytosis. He was here couple days ago and was treated for UTI. He has an indwelling Zamarripa catheter and hence there is a high chance he continues to have the UTI. I spoke with Dr. Willett who is on for orthopedics and he has asked to keep the patient nothing by mouth after midnight and admitted to medicine. I spoken to the hospitalist with accepted the admission. Data Data Last Documented VS Vital Signs Date Time Temp Pulse Resp B/P Pulse Ox O2 Delivery O2 Flow Rate FiO2 02/12/17 17:59 98.2 98 18 149/68 95 Room Air Orders Electrocardiogram (02/12/17 17:55) Complete Blood Count With Diff (02/12/17 17:55) Comprehensive Metabolic Panel (02/12/17 17:55) Prothrombin Time / Inr (Pt) (02/12/17 17:55) Act Partial Throm Time (Ptt) (02/12/17 17:55) Urinalysis - C+S If Indicated (02/12/17 17:55) Type And Screen (02/12/17 17:55) Chest, Single Ap (02/12/17 17:55) Hip, Uni(Ap&Lat) W Ap Pelvis (02/12/17 17:55) Iv Access Insert/Monitor (02/12/17 17:55) Oximetry (02/12/17 17:55) Ecg Monitoring (02/12/17 17:55) Morphine Inj (Morphine Inj) (02/12/17 18:00) Ondansetron Inj (Zofran Inj) (02/12/17 18:00) Sodium Chloride 0.9% Flush (Ns Flush) (02/12/17 18:00) Diet Npo (02/12/17 Dinner) Shoulder, Complete (>2vws) (02/12/17 17:55) Wrist, Complete (Atv3xmn) (02/12/17 17:55) Consult Orthopedic (02/12/17 ) Ct Brain W/O Iv Contrast(Rout) (02/12/17 ) Morphine Inj (Morphine Inj) (02/12/17 18:15) (Hub Use Only)Inp Phy Cons/Ref (02/12/17 ) Continue Zamarripa/Suprapubic Cath (02/12/17 18:57) Ceftriaxone Inj (Rocephin Inj) (02/12/17 19:15) Blood Culture (02/12/17 19:13) Ceftriaxone Inj (Rocephin Inj) (02/12/17 19:30) Admit Order (Ed Use Only) (02/12/17 19:25) Labs Laboratory Tests Test 02/12/17 02/12/17 18:00 18:45 Prothrombin Time 11.4 SEC Prothromb Time International 1.0 RATIO Ratio Activated Partial 35.7 SEC Thromboplast Time Sodium Level 132 MEQ/L Potassium Level 4.5 MEQ/L Chloride Level 97 MEQ/L Carbon Dioxide Level 26.2 MEQ/L Anion Gap 9 MEQ/L Blood Urea Nitrogen 46 MG/DL Creatinine 1.64 MG/DL Estimat Glomerular Filtration 42 ML/MIN Rate Random Glucose 97 MG/DL Calcium Level 9.6 MG/DL Total Bilirubin 0.3 MG/DL Aspartate Amino Transf 30 U/L (AST/SGOT) Alanine Aminotransferase 43 U/L (ALT/SGPT) Alkaline Phosphatase 74 U/L Total Protein 8.8 GM/DL Albumin 3.2 GM/DL Blood Type AB POSITIVE Antibody Screen NEGATIVE White Blood Count 18.2 TH/MM3 Red Blood Count 4.22 MIL/MM3 Hemoglobin 12.2 GM/DL Hematocrit 36.4 % Mean Corpuscular Volume 86.3 FL Mean Corpuscular Hemoglobin 28.9 PG Mean Corpuscular Hemoglobin 33.5 % Concent Red Cell Distribution Width 14.9 % Platelet Count 394 TH/MM3 Mean Platelet Volume 8.4 FL Neutrophils (%) (Auto) 84.0 % Lymphocytes (%) (Auto) 11.3 % Monocytes (%) (Auto) 4.5 % Eosinophils (%) (Auto) 0.1 % Basophils (%) (Auto) 0.1 % Neutrophils # (Auto) 15.3 TH/MM3 Lymphocytes # (Auto) 2.1 TH/MM3 Monocytes # (Auto) 0.8 TH/MM3 Eosinophils # (Auto) 0.0 TH/MM3 Basophils # (Auto) 0.0 TH/MM3 CBC Comment DIFF FINAL Differential Comment Urine Color YELLOW Urine Turbidity HAZY Urine pH 6.5 Urine Specific [place] 1.016 Urine Protein 30 mg/dL Urine Glucose (UA) NEG mg/dL Urine Ketones NEG mg/dL Urine Occult Blood MOD Urine Nitrite NEG Urine Bilirubin NEG Urine Urobilinogen LESS THAN 2.0 MG/DL Urine Leukocyte Esterase LARGE Urine RBC 167 /hpf Urine WBC 82 /hpf Urine Mucus FEW /lpf Microscopic Urinalysis Comment CATH-CULTURE IND MDM Supervised Visit with SANDRA: No Diagnosis Primary Impression: Hip fracture Qualified Code: S72.001A - Hip fracture, right, closed, initial encounter Additional Impression: Leukocytosis Qualified Code: D72.829 - Leukocytosis, unspecified type Admitting Information Admitting Physician Requests: Admit Nicky Ely MD Feb 12, 2017 19:28
[2017-02-12] MEDS ORDERED: cefTRIAXone INJ 1,000 MG in SODIUM CHLORIDE 0.9% INJ 100 ML IV ONE (19:30)
[2017-02-12] MEDS ORDERED: LACTULOSE SYRUP 20 GM/30 ML CUP PO PRN (19:30)
[2017-02-12] MEDS ORDERED: MORPHINE SULFATE 4 MG/ML INJ IV PRN ×2 (19:30)
[2017-02-12] MEDS ORDERED: NALOXONE HCL 0.4 MG/ML AMP IV PRN (19:30)
[2017-02-12] MEDS ORDERED: ACETAMINOPHEN 325 MG TAB PO PRN ×2 (19:30)
[2017-02-12] MEDS ORDERED: MAGNESIUM HYDROXIDE SUSP 30 ML CUP PO PRN (19:30)
[2017-02-12] MEDS ORDERED: ONDANSETRON HCL 4 MG/2 ML VIAL IVP PRN (19:30)
[2017-02-12] MEDS ORDERED: BISACODYL 10 MG SUPP RECTAL PRN (19:30)
[2017-02-12 19:32] LABS: BLOOD, URINE MOD (NEG); COMMENT (UR) CATH-CULTURE IND; CULTURE IF INDICATED CATH CULTURE IND; GLUCOSE,URINE NEG (NEG); KETONE, URINE NEG (NEG); MUCUS URINE FEW /lpf (OCC); NITRITE,URINE NEG (NEG); PH, URINE 6.5 (5.0-8.5); URINE COLOR YELLOW (YELLW/STRAW)
[2017-02-12 19:51] VITALS: BP 157/78; PULSE 81; RESP 18; O2SAT 98
[2017-02-12 20:05] VITALS: BP 145/66; PULSE 83; RESP 18; TEMP 96.9; O2SAT 95
[2017-02-12] MEDS ORDERED: POVIDONE IODINE 5% (ANTISEPSIS KIT) 4 APPLICATIONS EACH NARE PRN (20:30)
[2017-02-12] MEDS ORDERED: METOPROLOL TARTRATE 25 MG TAB PO PRN (20:30)
[2017-02-12] MEDS ORDERED: SODIUM CHLORID 0.9% 500 ML IV PRN (20:30)
[2017-02-12] MEDS ORDERED: CHLORHEXIDINE GLUCONATE 2 % 1 PACK (2 CLOTHS) TOPICAL PRN (20:30)
[2017-02-12] MEDS ORDERED: INSULIN HUMAN REGULAR 1,000 UNITS/10 ML VIAL SQ PRN (20:30)
[2017-02-12] MEDS ORDERED: LACTATED RINGER'S 1000 ML IV PRN (20:30)
--- NOTE | 2017-02-12 20:54 | HHI.PR ---
Addendum to Inpatient Note Additional Information After I spoke with the ER physician regarding admission for this patient, I was made aware that his PCP is [facility]. [facility]. I have spoken with WILMAR Zarate, and she asked me to transfer the patient to Dr. Jacob, who will take over as attending. Mc Morales MD Feb 12, 2017 20:54
[2017-02-12] MEDS: DOCUSATE SODIUM 50 MG/SENNA 8.6 MG TAB PO SCH (21:00)
[2017-02-12] MEDS: SODIUM CHLOR 0.9% 1000 ML INJ 1,000 ML IV SCH (21:09)
--- NOTE | 2017-02-12 21:44 | EKG ---
Date Performed: 02/12/2017 Time Performed: 19:00:11 PTAGE: 71 years EKG: Sinus rhythm NORMAL ECG PREVIOUS TRACING : 11/18/2016 20.09 Compared to prior tracing no significant change DOCTOR: Anthony Curran Interpretating Date/Time 02/12/2017 21:42:25
[2017-02-13] VITALS: BP 143/65; PULSE 88; RESP 20; TEMP 96.2; O2SAT 98
[2017-02-13 05:03] LABS: AUTOMATED NEUTROPHIL # 10.3 TH/MM3 (1.8-7.7); BASOPHIL % 0.3 % (0.0-2.0); EOSINOPHIL # 0.2 TH/MM3 (0-0.4); EOSINOPHIL % 1.2 % (0.0-4.0); HEMATOCRIT 33.5 % (39.0-51.0); HEMO FLAGS DIFF FINAL; LYMPH % 20.1 % (9.0-44.0); MEAN CORPUSCULAR HEMOGLOBIN 28.1 PG (27.0-34.0); MEAN CORPUSCULAR HGB CONC 32.3 % (32.0-36.0); MONO % 8.1 % (0.0-8.0); NEUT % 70.3 % (16.0-70.0); PLATELET COUNT 307 TH/MM3 (150-450); RED BLOOD COUNT 3.86 MIL/MM3 (4.50-5.90); RED CELL DISTRIBUTION WIDTH 15.4 % (11.6-17.2); WHITE BLOOD COUNT 14.7 TH/MM3 (4.0-11.0)
[2017-02-13 05:27] LABS: BICARBONATE 26.1 MEQ/L (21.0-32.0)
[2017-02-13 07:44] VITALS: BP 144/66; PULSE 72; RESP 17; TEMP 97.2; O2SAT 97
[2017-02-13] MEDS: DOCUSATE SODIUM 50 MG/SENNA 8.6 MG TAB PO SCH ×2 (08:02→20:20)
[2017-02-13] MEDS ORDERED: ONDANSETRON HCL 4 MG/2 ML VIAL IV PUSH ONE (08:13)
[2017-02-13] MEDS ORDERED: ePHEDrine/NS 25 MG/5 ML SYR IV ONE (08:13)
[2017-02-13] MEDS ORDERED: PROPOFOL 200 MG/20 ML AMP IV ONE (08:13)
[2017-02-13] MEDS ORDERED: PHENYLEPH/NS 1000 MCG/10 ML SYR IV ONE (08:13)
[2017-02-13] MEDS ORDERED: LACTATED RINGER'S 1000 ML INJ 1,000 ML IV ONE (08:14)
--- NOTE | 2017-02-13 08:52 | MB ---
cc: JG QUIÑONES M.D. DATE OF CONSULTATION: 02/13/2017 REASON FOR CONSULTATION Right intertrochanteric hip fracture. HISTORY OF PRESENT ILLNESS The patient is a 71-year-old male who was reported to have fallen sustaining a right spiral intertrochanteric hip fracture with subtrochanteric extension. He states he was going to the bathroom when he tripped and fell. He is somewhat of a poor historian. 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 He was reported to be on Eliquis. He also has had a previous urinary tract infection and has been on Bactrim antibiotics. Further history is unobtainable from the patient although he states he was a limited ambulator prior to the fall and there is a motorized wheelchair in his room. Pain is moderate and severe with any movement of the right hip or leg. PAST MEDICAL HISTORY Past history is positive for: 1. Stroke back in 2003. He was recently switched to Eliquis from Coumadin. 2. He has a history of hematuria. 3. Hypertension. 4. Diabetes. 5. Gastric reflux disease. SOCIAL HISTORY He has had a bladder tumor removed. He smokes half pack a day. Denies alcohol or drugs. ALLERGIES NO KNOWN DRUG ALLERGIES. MEDICATIONS 1. Terazosin. 2. Prednisone. 3. Oxybutynin. 4. Lortab. 5. Eliquis. 6. Cozaar. 7. Metoprolol. 8. Glucophage. 9. Clonidine. 10. Chlorathiadone. REVIEW OF SYSTEMS Negative for 10 systems other than HPI. However, the patient is a poor historian. FAMILY HISTORY Reviewed and noncontributory. Again, the patient also is a poor historian. PHYSICAL EXAMINATION GENERAL: The patient is awake, lying in bed, no acute distress. He is well-nourished. SKIN: Warm and dry. HEENT: Normocephalic. Pupils: No scleral icterus. NECK: Supple. Trachea midline. LUNGS: Clear. HEART: Regular rate and rhythm. ABDOMEN: Soft, nontender. EXTREMITIES: The patient has shortening and external rotation of the right lower extremity with pain with passive motion of the right hip. He shows some chronic neurologic weakness affecting the right lower extremity. The left lower extremity he can flex his ankle and toes without significant limitation. His speech appears to be partially aphasic. LABORATORY DATA Admission white blood cell count is 18.2, hemoglobin 12, hematocrit 36. BUN 46, creatinine 1.6, glucose 97. Repeat white blood cell count this morning is 14.7. IMAGING STUDIES X-rays of the right hip reveal a displaced comminuted intertrochanteric hip fracture with spiral subtrochanteric extension. IMPRESSION 71-year-old male status post fall, right intertrochanteric hip fracture with subtrochanteric extension and displacement, history of prior stroke in 2003, history of blood thinner Eliquis, currently being treated for urinary tract infection. He has been on Bactrim for several days, diabetes mellitus, current smoker. PLAN Discussed diagnosis with the patient, spoke about treatment options, spoke about the option of nonoperative treatment or surgery. Surgery will consist of open reduction, internal fixation with intramedullary nailing of his fracture. The risks of surgery were discussed which include but not limited to anesthesia, bleeding, infection, damage to nerves, blood vessels, pain, stiffness, failure of components, blood clots, pulmonary embolism. The patient expresses an understanding of his diagnosis and treatment options. He is in favor of proceeding with surgery. Written consent will be obtained, the surgical site has been marked. Of note, the emergency room physician did give him a dose of Rocephin to supplement treatment of his urinary tract infection. MD MIRZA Esparza/ESTEFANI /8:20 AM /8:31 AM
[2017-02-13] MEDS: METOPROLOL TARTRATE 50 MG TAB PO SCH (09:15)
[2017-02-13] MEDS ORDERED: NALOXONE HCL 0.4 MG/ML AMP IV PRN (09:15)
[2017-02-13] MEDS ORDERED: ONDANSETRON HCL 4 MG/2 ML VIAL IVP PRN (09:15)
[2017-02-13] MEDS ORDERED: ZOLPIDEM TARTRATE 5 MG TAB PO PRN (09:15)
[2017-02-13] MEDS ORDERED: ENOXAPARIN SODIUM 30 MG/0.3 ML SYRINGE SQ SCH (09:15)
[2017-02-13] MEDS ORDERED: ACETAMINOPHEN/HYDROcodone 325 MG/10 MG TAB PO PRN (09:15)
[2017-02-13] MEDS ORDERED: Post-op Orders (for Pharmacy) MISC XX ONE (09:15)
[2017-02-13] MEDS ORDERED: BISACODYL 10 MG SUPP RECTAL PRN (09:15)
[2017-02-13] MEDS ORDERED: SODIUM CHLORIDE 0.9% FLUSH 5 ML FLUSH IVF PRN (09:15)
[2017-02-13] MEDS ORDERED: MORPHINE SULFATE 4 MG/ML INJ IV PUSH PRN (09:15)
[2017-02-13] MEDS ORDERED: diphenhydrAMINE HCL 50 MG/ML VIAL IV PRN (09:15)
[2017-02-13] MEDS ORDERED: TRANEXAMIC ACID INJ 1,000 MG/10 ML AMP ONE ×2 (09:20→09:38)
--- NOTE | 2017-02-13 09:28 | HHI.PR ---
Objective Objective Results - Vital Signs Date Time Temp Pulse Resp B/P Pulse Ox O2 Delivery O2 Flow Rate FiO2 02/13/17 07:44 97.2 72 17 144/66 97 02/13/17 00:00 96.2 88 20 143/65 98 02/12/17 20:05 96.9 83 18 145/66 95 02/12/17 19:51 81 18 157/78 98 Nasal Cannula 2 02/12/17 17:59 98.2 98 18 149/68 95 Room Air 02/12/17 17:59 94 18 95 Room Air 02/12/17 17:47 98.2 88 18 149/68 95 I/O 02/12/17 02/12/17 02/12/17 02/13/17 02/13/17 02/13/17 07:00 15:00 23:00 07:00 15:00 23:00 Intake Total 240 ml 0 ml Output Total 750 ml 700 ml Balance -510 ml -700 ml Intake Oral 240 ml 0 ml Output Urine Total 750 ml 700 ml # Bowel Movements 0 0 (Rosa Isela Woo) Result Diagram: 02/13/178 02/13/178 Physical Exam Physical Exam dictated [id number], add duonebs, scds, maintain conklin catheter, permanent for the last 4 months. ( Rosa Isela Woo) A/P Assessment and Plan seen, examined by myself, Dr Jacob, today Admitted with intertrochanteric hip fracture Surgery already performed today Postoperative routine care Pain control DVT prophylaxis Physical therapy Bowel regimen Wound care Discussed with mid level provider Full history and physical to follow The exam, history, and the medical decision-making described in the above note were completed with the assistance of the mid-level provider. I reviewed the findings presented. I attest that I had a [id number] encounter with the patient on the same day, and personally performed and documented my assessment and findings in the medical record. (Lesa Jacob MD) Rosa Isela Woo Feb 13, 2017 09:28 Lesa Jacob MD Feb 13, 2017 17:30
[2017-02-13] MEDS: cloNIDine HCL 0.1 MG TAB PO SCH (09:30)
[2017-02-13] MEDS ORDERED: PILL SPLITTER OTHER PRN (09:30)
[2017-02-13] MEDS ORDERED: GLUCAGON 1 MG/ML VIAL OTHER PRN ×2 (09:30→17:45)
[2017-02-13] MEDS ORDERED: DEXTROSE 50% IN WATER 50 ML VIAL(D50) IV PRN ×2 (09:30→17:45)
[2017-02-13] MEDS ORDERED: ceFAZolin 2 GM PREMIX 50 ML ONE (09:33)
[2017-02-13] MEDS ORDERED: VANCOMYCIN HCL 1000 MG VIAL ONE (09:34)
[2017-02-13] MEDS ORDERED: RESP: ALBUTEROL 2.5 MG/IPRATROPIUM 0.5 MG NEB (PRN) NEB ×3 (09:45→18:30)
[2017-02-13] MEDS: LOSARTAN 50 MG TAB PO SCH (10:00)
[2017-02-13] MEDS ORDERED: predniSONE 5 MG TAB PO SCH (10:00)
[2017-02-13] MEDS: CHLORTHALIDONE 50 MG TAB PO SCH (10:00)
[2017-02-13] MEDS: OXYBUTYNIN CHLORIDE 5 MG PO SCH (10:00)
[2017-02-13] MEDS ORDERED: GENTAMICIN SULFATE 80 MG/2 ML VIAL ONE (10:19)
--- NOTE | 2017-02-13 11:22 | RADRPT ---
EXAM DATE/TIME: 02/13/2017 10:45 [facility] COMPARISON: No previous studies available for comparison. INDICATIONS : Right hip ORIF. MEDICAL HISTORY : Right hip fracture. SURGICAL HISTORY : None. ENCOUNTER: Initial ACUITY: 1 day PAIN SCORE: Non-responsive. LOCATION: Right hip. FINDINGS: A two view examination of the right hip was performed intraoperatively. An JACI less than placed acros s the hip fracture. Hardware appears be in excellent position. CONCLUSION: Intertrochanteric fracture has been fixated with hardware without complication.. Arun Goodwin MD on February 13, 2017 at 11:20 Board Certified Radiologist. This report was verified electronically.
[2017-02-13] MEDS ORDERED: fentaNYL CITRATE 250 MCG/5 ML AMP ONE (11:32)
[2017-02-13] MEDS: SODIUM CHLOR 0.9% 1000 ML INJ 1,000 ML IV SCH ×2 (11:37→20:00)
[2017-02-13] MEDS: INSULIN NovoLIN REGULAR SUPPLEMENTAL SCALE SQ SCH ×2 (11:46→16:00)
[2017-02-13] MEDS ORDERED: *ONDANSETRON 4 MG VIAL PERIprocedural Use ONLY ONE (11:53)
[2017-02-13] MEDS ORDERED: DO NOT ADM ANY ANTICOAGULANT DRUGS PRN (12:00)
[2017-02-13] MEDS: cefTRIAXone INJ 1,000 MG in SODIUM CHLORIDE 0.9% INJ 100 ML IV SCH (12:04)
[2017-02-13 12:53] VITALS: BP 136/63; PULSE 69; RESP 17; TEMP 96.5; O2SAT 96
[2017-02-13] MEDS: NEOMYCIN/POLYMYX/DEXAMETH OPHT SUSP 5 ML BTL LEFT EYE SCH ×3 (13:00→20:22)
[2017-02-13 16:00] VITALS: BP 125/60; PULSE 103; RESP 17; TEMP 97.3; O2SAT 93
[2017-02-13 16:02] VITALS: O2SAT 96
[2017-02-13 20:00] VITALS: BP 140/65; PULSE 111; RESP 17; TEMP 99.3; O2SAT 93
[2017-02-13] MEDS: TERAZOSIN HCL 5 MG CAP PO SCH (20:20)
[2017-02-13] MEDS: metFORMIN HCL 500 MG TAB PO SCH (20:20)
[2017-02-13] MEDS: ACETAMINOPHEN/HYDROcodone 325 MG/10 MG TAB PO PRN (20:20)
[2017-02-13] MEDS: SODIUM CHLORIDE 0.9% FLUSH 5 ML FLUSH IVF SCH (20:22)
[2017-02-13] MEDS: ARTIFICIAL TEARS OPTH SOLN 15 ML BTL EACH EYE SCH (20:22)
[2017-02-13] MEDS: ARTIFICIAL TEARS OPTH OINT 3.5 APPLIC/3.5 GM TUBO EACH EYE SCH (20:22)
[2017-02-13] MEDS: INSULIN ASPART SUPPLEMENTAL SCALE SQ SCH (20:26)
[2017-02-14] VITALS (7 sets, daily range): BP systolic 112–150; BP diastolic 55–69; PULSE 75–109; RESP 18–20; TEMP 96.9–98; O2SAT 91–96
[2017-02-14] MEDS: ACETAMINOPHEN/HYDROcodone 325 MG/10 MG TAB PO PRN (04:51)
[2017-02-14] MEDS: SODIUM CHLOR 0.9% 1000 ML INJ 1,000 ML IV SCH ×3 (06:00→16:00)
[2017-02-14] MEDS: INSULIN ASPART SUPPLEMENTAL SCALE SQ SCH ×4 (06:19→20:30)
[2017-02-14 07:41] LABS: HEMATOCRIT 30.8 % (39.0-51.0); MEAN CELL VOLUME 87.4 FL (80.0-100.0); MEAN CORPUSCULAR HEMOGLOBIN 27.9 PG (27.0-34.0); MEAN CORPUSCULAR HGB CONC 31.9 % (32.0-36.0); PLATELET COUNT 298 TH/MM3 (150-450); RED BLOOD COUNT 3.53 MIL/MM3 (4.50-5.90); RED CELL DISTRIBUTION WIDTH 14.8 % (11.6-17.2); REVIEW FLAG FINAL; WHITE BLOOD COUNT 16.9 TH/MM3 (4.0-11.0)
[2017-02-14] MEDS: DOCUSATE SODIUM 50 MG/SENNA 8.6 MG TAB PO SCH ×2 (08:05→20:28)
[2017-02-14] MEDS: cloNIDine HCL 0.1 MG TAB PO SCH (08:05)
[2017-02-14] MEDS: LOSARTAN 50 MG TAB PO SCH (08:05)
[2017-02-14] MEDS: SENNOSIDES 8.6 MG TAB PO PRN ×2 (08:05→20:28)
[2017-02-14] MEDS: CHLORTHALIDONE 50 MG TAB PO SCH (08:05)
[2017-02-14] MEDS: METOPROLOL TARTRATE 50 MG TAB PO SCH (08:05)
[2017-02-14] MEDS: metFORMIN HCL 500 MG TAB PO SCH ×2 (08:05→20:29)
[2017-02-14] MEDS: MULTIVITAMIN TAB PO SCH (08:05)
[2017-02-14] MEDS: APIXABAN 2.5 MG TABLET PO SCH ×2 (08:06→20:28)
[2017-02-14] MEDS: SODIUM CHLORIDE 0.9% FLUSH 5 ML FLUSH IVF SCH ×2 (08:11→20:31)
[2017-02-14] MEDS: OXYBUTYNIN CHLORIDE 5 MG PO SCH (08:11)
[2017-02-14] MEDS: NEOMYCIN/POLYMYX/DEXAMETH OPHT SUSP 5 ML BTL LEFT EYE SCH ×4 (08:12→20:27)
--- NOTE | 2017-02-14 08:19 | MP ---
cc: JG QUIÑONES M.D. DATE OF SURGERY 02/13/2017 PREOPERATIVE DIAGNOSIS Right intertrochanteric hip fracture. POSTOPERATIVE DIAGNOSIS Right intertrochanteric hip fracture. PROCEDURE Intramedullary nailing right intertrochanteric hip fracture. SURGEON Dr. Jg Quiñones BIOLOGICAL SCIENCE AIDE Mihir Nesbitt PA-C ANESTHESIA General. ESTIMATED BLOOD LOSS 100 cc COMPLICATIONS None. IMPLANTS USED Synthes 11 x 340-mm titanium trochanteric femoral nail. JUSTIFICATION This patient is a 71-year-old male who fell sustaining a comminuted, displaced right intertrochanteric hip fracture with subtrochanteric extension. He has severe pain associated with the injury. He was admitted to [facility]. Orthopedics was consulted. Exam of the patient, counseling of the patient as to the risks, benefits and alternatives to the above-named proposed surgical procedure. He did wish to proceed with surgery. PROCEDURE IN DETAIL Written consent was obtained. The patient was identified by name, taken to the operating room, placed supine on the operating room table after which general anesthesia was administered as well as 2 grams of IV Ancef and 1 gram of IV vancomycin. The right foot was placed in the well-padded traction boot, the left leg placed in a padded well leg webb. All bony prominences and pressure points were well padded. The right hip and right lower extremity were prepped and draped using isopropyl alcohol, Hibiclens solution and Chloraprep solution. After a time-out was performed, a longitudinal incision was made over the lateral aspect of the right hip. The fascial layer was incised. A guidewire was used to gain entrance into the intramedullary canal of the femur. This was followed by cannulated entry with the reamer. Subsequently a long beaded-tip guidewire was placed in the intramedullary canal of the femur. Sequential reaming up to size 12 was followed by placement of an 11 x 340-mm trochanteric Synthes titanium femoral nail. The guidewire was removed through. A proximal locking jig was used to place a guide pin centered within the femoral head and subsequently the 100-mm spiral blade was inserted. The top locking screw was secured to create a fixed angle sliding construct distally. The locking jig was used to place a single lateral to medial transverse static locking screw. Fluoroscopic imaging confirmed hardware placement and fracture reduction. The surgical wound was thoroughly irrigated with sterile saline solution. The deep fascial layer was closed with #1 Vicryl suture, the subcutaneous layer with 2-0 Vicryl suture. The skin was closed with Dermabond. Sterile dressing applied. The patient tolerated the procedure well with no intraoperative complications noted. Mihir Nesbitt, physician furniture removalist's assistant certified, was present during the entire seizure to include the patient positioning, the procedure itself. The medical necessity of a physician furniture removalist's assistant was indicated in this case due to the complexity of the procedure itself. He assisted with appropriate manipulation leg and also retraction and exposure. He assisted with preparation of the bone and also implantation of the internal fixation device. MD MIRZA Esparza/OZIEL /11:06 AM /8:10 AM
[2017-02-14 08:33] LABS: BICARBONATE 26.7 MEQ/L (21.0-32.0); POTASSIUM 3.8 MEQ/L (3.5-5.1)
--- NOTE | 2017-02-14 09:06 | MH ---
cc: DA TREJO MD DATE OF ADMISSION: 02/12/2017 DATE OF : 1945 Travel in the last 30 days, none. REASON FOR ADMISSION: Right hip fracture. HISTORY OF PRESENT ILLNESS This is a 71-year-old white male who was examined in the emergency room for right hip pain. His niece who was in the room with him states that [facility] during a transfer. The patient, according to the record, complained of his right shoulder, right wrist and right hip. X-rays were all performed which showed a right spiral intertrochanteric hip fracture with subtrochanter extension. The patient has known dementia. When asked simple questions he answers yes to everything. According to the record, he initially stated that he was going to the bathroom, tripped and fell. He is poor historian. He is having pain in his right hip with any type of movement. He has suffered from a CVA x2 with right-sided paralysis back in 2003. He has lived at the [facility] since 2003. PAST MEDICAL HISTORY: 1. According to the record, the patient is on anticoagulant therapy. He has been on Coumadin in the past but has been transitioned to Eliquis according to the medical record. 2. Cardiovascular disease. 3. CVA x2 in 2003. 4. Current tobacco user, half pack to a pack a day for many years. 5. Diabetes mellitus type 2. He takes p.o. metformin. 6. Hematuria. 7. Right-side flaccid, from dysphagia. 8. Chronic Zamarripa catheter. 9. Niece states the patient had a bladder tumor approximately four months ago and has had a catheter since then. 10. Ulcers. 11. Dementia. PAST SURGICAL HISTORY: Bladder tumor removed. ALLERGIES: None known. MEDICATIONS: 1. Terazosin. 2. Prednisone. 3. Oxybutynin 4. Natural Tears. 5. Hydrocodone. 6. Acetaminophen. 7. Eliquis. 8. Artificial Tears. 9. Cozaar. 10. Metoprolol. 11. Metformin. 12. Maxitrol ophthalmic drops. 13. Clonidine. 14. Chlorthalidone. SOCIAL HISTORY Tobacco use. No alcohol. No illicit drugs. He lives at [facility] since 2003. REVIEW OF SYSTEMS: Poor historian. Unable to obtain adequate information from the patient. VITAL SIGNS: Temperature 97.2, pulse 72, respiratory rate 20, blood pressure 143/65. O2 sat 97. Nasal cannula at two liters. PHYSICAL EXAMINATION: GENERAL: Mildly obese, well-developed, well-nourished elderly male, looks to be his stated age, resting in bed. Eyes are opened. He is awake, poor historian. Skin: Serge. [place] mucous membranes, warm and dry. HEENT: Normocephalic, atraumatic. Eyes are positive for some serous drainage, mild. NECK: Supple. CARDIOVASCULAR: S1-S2. Regular rate and rhythm. No murmurs, rubs, or gallops. RESPIRATORY: Mild expiratory wheezes heard anteriorly and posteriorly with some diminished breath sounds. Volumes are adequate. GASTROINTESTINAL: Abdomen is round, soft, non-tender, non-distended. Active bowel sounds. EXTREMITIES: Moves his left arm, hand and leg with normal strength. Right side is flaccid. NEUROLOGIC: Awake, responds with the words "yes" to all of my questions, poor historian. DIAGNOSTIC DATA Initial white count on admission was 18.2, now 14.7. RBC 3.86, hemoglobin 10.8, hematocrit 33.5, neutrophil percentage auto count 70.3, monocyte count 8.1. Chemistry: sodium 134, potassium 4, chloride 101, carbon dioxide 26.1, anion gap 7, BUN 35, creatinine 1.14. GFR 64, random glucose 79, calcium 8.7. PT/INR 1. Urine: Color is yellow and hazy, pH 6.5, specific gravity 1.016, protein is elevated at 30. Moderate amount of occult blood, large amount of leukocyte esterase. RBCs are 167, few amount of mucous, urine culture has been obtained. Blood cultures are also pending. IMAGING STUDIES: Chest x-ray, no acute disease. Pelvis hip x-ray, communicated right intertrochanteric fracture, shoulder and wrist x-ray shows osteopenia but no fracture or malalignment. Wrist x-ray, osteopenia and osteoarthritic changes but no acute fracture. Head CT: Large area of encephalomalacia involving the left middle cerebral artery territory. No acute hemorrhage or mass effect. ASSESSMENT AND PLAN: 1. Closed fracture of the right intertrochanteric section of the femur. 2. Renal insufficiency with mild dehydration. 3. COPD, stable. 4. History of atrial fibrillation. Currently now in sinus rhythm. 5. Tobacco abuse. 6. UTI. 7. Anemia, mild. 8. Hyponatremia, mild. 9. Leukocytosis on admission, now resolved. 10. Osteopenia. 11. History of CVA. 12. Encephalomalacia. The plan is to admit inpatient status. The patient has been seen per ortho surgery and Dr. Shaji Willett. He is currently n.p.o. and going to surgery this morning for the repair of his right hip. Patient's initial labs have been evaluated. His medications have been reconciled as warranted. When the patient returns he will be on a diabetic diet. His postop orders and pain management will be per ortho. The patient will have Accu-Cheks ac and hs with sliding scale. Case management consult for discharge planning, respiratory, incentive spirometry, O2 at two liters. Monitor his vital signs q4, and as warranted. Patient's niece who is his historian for the present time states that she is unaware whether there is a living will or not. Her mom, Rimma Johnson, is his daughter and his next of kin. She is going to speak to her mom to bring any type of living will if the patient has one. Currently he is full code, full aggressive care, and will continue to follow. Dictated by: WILMAR Rodriguez MD BRODIE Mack/SANTINO /9:19 AM /9:09 AM
--- NOTE | 2017-02-14 11:55 | HHI.PR ---
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 Integumentary Skin Remarks Incision right hip surgery on 8116 Psychiatric Psychiatric: Normal Mood Psychiatric Remarks Dementia Vitals/Results Intake & Output 02/13/17 02/13/17 02/14/17 15:00 23:00 07:00 Intake Total 1020 ml 620 ml 790 ml Output Total 1250 ml 600 ml 525 ml Balance -230 ml 20 ml 265 ml Intake Oral 520 ml 240 ml 480 ml IV Total 380 ml 310 ml Other 500 ml Output Urine Total 1150 ml 600 ml 525 ml Estimated Blood Loss 100 ml # Voids 0 # Bowel Movements 0 0 0 Vital Signs Vital Signs Date Time Temp Pulse Resp B/P Pulse Ox O2 Delivery O2 Flow Rate FiO2 02/14/17 09:45 94 21 02/14/17 08:15 Room Air 02/14/17 08:00 97.0 89 20 143/65 92 02/14/17 04:00 96.9 90 18 134/64 96 02/14/17 00:00 97.8 87 18 122/58 95 02/13/17 20:37 Nasal Cannula 2.00 02/13/17 20:00 99.3 111 17 140/65 93 02/13/17 16:02 96 Nasal Cannula 2.00 02/13/17 16:00 97.3 103 17 125/60 93 02/13/17 12:53 96.5 69 17 136/63 96 02/13/17 12:30 97.2 79 17 129/67 96 Nasal Cannula 2 02/13/17 12:15 70 16 133/77 96 Nasal Cannula 2 02/13/17 12:00 78 14 148/65 96 Nasal Cannula 2 CBC/BMP: 02/14/17 0711 02/14/17 0711 Lab Results Laboratory Tests Test 02/14/17 07:11 White Blood Count 16.9 TH/MM3 Red Blood Count 3.53 MIL/MM3 Hemoglobin 9.8 GM/DL Hematocrit 30.8 % Mean Corpuscular Volume 87.4 FL Mean Corpuscular Hemoglobin 27.9 PG Mean Corpuscular Hemoglobin 31.9 % Concent Red Cell Distribution Width 14.8 % Platelet Count 298 TH/MM3 Mean Platelet Volume 8.1 FL Sodium Level 137 MEQ/L Potassium Level 3.8 MEQ/L Chloride Level 102 MEQ/L Carbon Dioxide Level 26.7 MEQ/L Anion Gap 8 MEQ/L Blood Urea Nitrogen 24 MG/DL Creatinine 0.98 MG/DL Estimat Glomerular Filtration 76 ML/MIN Rate Random Glucose 93 MG/DL Calcium Level 8.7 MG/DL Current Medications Administered Medications Medications (Trade) Dose Ordered Sig/Marizol Route PRN Reason Start Time Stop Time Status Last Admin Dose Admin Sodium Chloride (NS 1000 ml Inj) 1,000 ml @ 70 mls/hr [id number] IV 02/12/17 19:25 02/12/17 21:09 Morphine Sulfate (Morphine Inj) 4 mg Q3H PRN IV Pain 6-10;if unable to take PO 02/12/17 19:30 02/12/17 23:30 Senna/Docusate Sodium ([place]-Colace) 1 tab BID PO 02/12/17 21:00 02/14/17 08:05 Sennosides (Senokot) 17.2 mg Q12H PRN PO MODERATE - SEVERE CONSTIPATION 02/12/17 19:30 02/14/17 08:05 Clonidine (Catapres) 0.1 mg DAILY PO 02/13/17 09:30 02/14/17 08:05 Losartan Potassium (Cozaar) 50 mg DAILY PO 02/13/17 10:00 02/14/17 08:05 Metformin HCl (Glucophage) 500 mg BID PO 02/13/17 21:00 02/14/17 08:05 Metoprolol Tartrate (Lopressor) 50 mg DAILY PO 02/13/17 09:15 02/14/17 08:05 Multivitamins (Theragran) 1 tab DAILY PO 02/14/17 09:00 02/14/17 08:05 Neomycin/ Polymyxin/ Dexamethasone (Maxitrol Opht Susp) 1 drop QID LEFT EYE 02/13/17 13:00 02/14/17 08:12 Terazosin HCl (Hytrin) 5 mg HS PO 02/13/17 21:00 02/13/17 20:20 Artificial Tears (Lacrilube Opht Oint) 1 applic HS EACH EYE 02/13/17 21:00 02/13/17 20:22 Artificial Tears (Tears Naturale Opth Soln) 1 drop HS EACH EYE 02/13/17 21:00 02/13/17 20:22 Chlorthalidone (Hygroton) 25 mg DAILY PO 02/13/17 10:00 02/14/17 08:05 Oxybutynin Chloride 5 mg 5 mg DAILY PO 02/13/17 10:00 02/14/17 08:11 Sodium Chloride (NS 1000 ml Inj) 1,000 ml @ 100 mls/hr Q10H IV 02/13/17 10:00 02/13/17 20:00 Acetaminophen/ Hydrocodone Bitart ([place] 10-325 Mg) 1 tab Q4H PRN PO PAIN LESS THAN 5 ON SCALE 02/13/17 09:15 02/14/17 04:51 Apixaban 2.5 mg 2.5 mg BID PO 02/14/17 09:00 02/14/17 08:06 Ceftriaxone Sodium/Sodium Chloride (Rocephin Inj/NS Inj) 100 ml @ 200 mls/hr Q24H IV 02/13/17 12:00 02/13/17 12:04 Physical Exam General General Appearance: Well Developed, Well Nourished, No Acute Distress, Obese Eyes Eye Exam: Pupils Equal, Pupils Reactive Ears & Nose Ears & Nose Exam: Nasal Mucosa [place] Throat Throat Exam: Oral Mucosa [place] & Moist Neck Neck Exam: Neck Supple Pulmonary Resp Exam: Clear Bilaterally Cardiology CV Exam: Regular Gastrointestinal/Abdomen GI Exam: Soft (obese), Bowel Sounds Present Musculoskeletal MS Exam: Atrophy (right-sided paralysis, old CVA), Unable to Ambulate ( wheelchair bound) Integumentary Skin Exam: Warm, Dry Skin Remarks Right hip surgical incision clean dry and intact, performed on 02/13/17 Neurologic Neuro Exam: Awake (speech is slurred but understandable, answers yes to most questions) Assessment/Plan Assessment/Plan 1. Closed fracture of the right intertrochanteric section of the femur. Surgical repair on 02/13/17, postop care and pain management per orthopedic team Patient's currently up in chair tolerating well 2. Renal insufficiency with mild dehydration. Monitor his labs encourage by mouth fluids, received gentle hydration IV fluids, improved today with mild elevation of B UN, 3. COPD, stable. Patient still smokes in his previous [facility] setting Currently no wheezing or rhonchi noted 4. History of atrial fibrillation. Currently now in sinus rhythm. Monitor for any acute events rhythm is regular normal range 5. Tobacco Patient appears calm has not mentioned his cigarettes abuse. 6. UTI. IV Rocephin, chronic Zamarripa catheter for the past 4 months 7. Anemia, mild. Monitor labs currently stable 8. Hyponatremia, mild. On admission, monitor BMP, resolved this a.m. 9. Leukocytosis on admission, seems to wax and wane Patient has UTI, BMP monitor 10. Osteopenia., Medical management 11. History of CVA., Total right-sided flaccid, patient is wheelchair bound 12. Encephalomalacia., Old CVA Discussed with nurse Discussed with patient Discussed with Dr. Jacob, seen on his behalf Discharge planning based on orthopedic recommendations, when stable will return to his [facility] CODE STATUS DO NOT RESUSCITATE no code, discussed on admission with niece who got a copy of his record from the [facility] for patient's and family preference. Rosa Isela WooP Feb 14, 2017 11:55
[2017-02-14] MEDS: cefTRIAXone INJ 1,000 MG in SODIUM CHLORIDE 0.9% INJ 100 ML IV SCH (12:00)
--- NOTE | 2017-02-14 12:32 | PD.ORT.PN ---
Subjective Post Op Day #: 1 Subjective Remarks pain under control. Objective Vitals Vital Signs Date Time Temp Pulse Resp B/P Pulse Ox O2 Delivery O2 Flow Rate FiO2 02/14/17 12:07 97.4 75 18 112/55 92 02/14/17 09:45 94 21 02/14/17 08:15 Room Air 02/14/17 08:00 97.0 89 20 143/65 92 02/14/17 04:00 96.9 90 18 134/64 96 02/14/17 00:00 97.8 87 18 122/58 95 02/13/17 20:37 Nasal Cannula 2.00 02/13/17 20:00 99.3 111 17 140/65 93 02/13/17 16:02 96 Nasal Cannula 2.00 02/13/17 16:00 97.3 103 17 125/60 93 02/13/17 12:53 96.5 69 17 136/63 96 I/O 02/13/17 02/13/17 02/13/17 02/14/17 02/14/17 02/14/17 07:00 15:00 23:00 07:00 15:00 23:00 Intake Total 0 ml 1020 ml 620 ml 790 ml Output Total 700 ml 1250 ml 600 ml 525 ml Balance -700 ml -230 ml 20 ml 265 ml Intake Oral 0 ml 520 ml 240 ml 480 ml IV Total 380 ml 310 ml Other 500 ml Output Urine Total 700 ml 1150 ml 600 ml 525 ml Estimated Blood Loss 100 ml # Voids 0 # Bowel Movements 0 0 0 0 Result Diagram: 02/14/17 0711 02/14/17 0711 Objective Remarks in chair, nad dressing c/d/i thigh soft neg homans chronic right sided weakness Assessment & Plan Ortho Post Op Day #: 1 Problem List: Assessment and Plan s/p R Long Troch Nail POD1 TTWB daily dressing changes Eliquis d/c planning home vs snf f/up dr. villatoro 2 weeks Shaji Nesbitt Feb 14, 2017 12:32
[2017-02-14] MEDS ORDERED: cefTRIAXone INJ 1,000 MG in SODIUM CHLORIDE 0.9% INJ 100 ML IV SCH (20:00)
[2017-02-14] MEDS: ARTIFICIAL TEARS OPTH OINT 3.5 APPLIC/3.5 GM TUBO EACH EYE SCH (20:27)
[2017-02-14] MEDS: ARTIFICIAL TEARS OPTH SOLN 15 ML BTL EACH EYE SCH (20:27)
[2017-02-14] MEDS: TERAZOSIN HCL 5 MG CAP PO SCH (20:28)
[2017-02-14] MEDS: DOCUSATE SODIUM 100 MG CAP PO SCH (20:28)
[2017-02-15] VITALS (7 sets, daily range): BP systolic 114–148; BP diastolic 53–69; PULSE 83–122; RESP 17–19; TEMP 96.3–97.7; O2SAT 90–95
[2017-02-15] MEDS: SODIUM CHLOR 0.9% 1000 ML INJ 1,000 ML IV SCH ×5 (02:06→21:58)
[2017-02-15] MEDS: INSULIN ASPART SUPPLEMENTAL SCALE SQ SCH ×4 (06:11→21:57)
[2017-02-15 06:37] LABS: HEMATOCRIT 30.4 % (39.0-51.0); MEAN CELL VOLUME 86.7 FL (80.0-100.0); MEAN CORPUSCULAR HEMOGLOBIN 28.4 PG (27.0-34.0); MEAN CORPUSCULAR HGB CONC 32.8 % (32.0-36.0); PLATELET COUNT 327 TH/MM3 (150-450); RED BLOOD COUNT 3.51 MIL/MM3 (4.50-5.90); RED CELL DISTRIBUTION WIDTH 14.9 % (11.6-17.2); REVIEW FLAG FINAL; WHITE BLOOD COUNT 16.1 TH/MM3 (4.0-11.0)
[2017-02-15 07:01] LABS: BICARBONATE 26.7 MEQ/L (21.0-32.0); POTASSIUM 3.8 MEQ/L (3.5-5.1)
[2017-02-15] MEDS: SODIUM CHLORIDE 0.9% FLUSH 5 ML FLUSH IVF SCH ×2 (09:00→21:57)
--- NOTE | 2017-02-15 09:11 | PD.ORT.PN ---
Subjective Post Op Day #: 2 Subjective Remarks pain under control. Objective Vitals Vital Signs Date Time Temp Pulse Resp B/P Pulse Ox O2 Delivery O2 Flow Rate FiO2 02/15/17 07:30 97.5 100 18 140/67 95 02/15/17 00:00 96.3 122 19 142/65 90 02/14/17 19:45 21 02/14/17 19:00 98.0 109 20 150/69 91 02/14/17 19:00 Room Air 02/14/17 16:00 97.0 93 18 127/61 94 02/14/17 12:07 97.4 75 18 112/55 92 02/14/17 09:45 94 21 I/O 02/14/17 02/14/17 02/14/17 02/15/17 02/15/17 02/15/17 06:59 14:59 22:59 06:59 14:59 22:59 Intake Total 790 ml 850 ml 480 ml 480 ml Output Total 525 ml 1125 ml 450 ml Balance 265 ml -275 ml 480 ml 30 ml Intake Oral 480 ml 850 ml 480 ml 480 ml IV Total 310 ml Output Urine Total 525 ml 1125 ml 450 ml # Voids 2 # Bowel Movements 0 0 0 0 Result Diagram: 02/15/1743602/15/17436 Objective Remarks in bed, nad dressing c/d/i thigh soft neg homans chronic right sided weakness Assessment & Plan Ortho Post Op Day #: 2 Problem List: Assessment and Plan s/p R Long Troch Nail POD2 TTWB daily dressing changes Eliquis d/c planning home vs snf ortho stable and cleared for d/c f/up dr. villatoro 2 weeks Shaji Nesbitt Feb 15, 2017 09:11
[2017-02-15] MEDS: MULTIVITAMIN TAB PO SCH (09:29)
[2017-02-15] MEDS: OXYBUTYNIN CHLORIDE 5 MG PO SCH (09:29)
[2017-02-15] MEDS: APIXABAN 2.5 MG TABLET PO SCH ×2 (09:29→21:56)
[2017-02-15] MEDS: cloNIDine HCL 0.1 MG TAB PO SCH (09:29)
[2017-02-15] MEDS: metFORMIN HCL 500 MG TAB PO SCH ×2 (09:30→21:56)
[2017-02-15] MEDS: DOCUSATE SODIUM 100 MG CAP PO SCH ×2 (09:30→21:57)
[2017-02-15] MEDS: CHLORTHALIDONE 50 MG TAB PO SCH (09:30)
[2017-02-15] MEDS: DOCUSATE SODIUM 50 MG/SENNA 8.6 MG TAB PO SCH ×2 (09:30→21:57)
[2017-02-15] MEDS: METOPROLOL TARTRATE 50 MG TAB PO SCH (09:30)
[2017-02-15] MEDS: LOSARTAN 50 MG TAB PO SCH (09:30)
[2017-02-15] MEDS: NEOMYCIN/POLYMYX/DEXAMETH OPHT SUSP 5 ML BTL LEFT EYE SCH ×4 (09:31→21:56)
[2017-02-15] MEDS: SODIUM CHLORIDE 0.9% FLUSH 10 ML FLUSH IVF PRN (09:32)
[2017-02-15] MEDS: cefTRIAXone INJ 1,000 MG in SODIUM CHLORIDE 0.9% INJ 100 ML IV SCH (12:49)
--- NOTE | 2017-02-15 14:04 | HHI.PR ---
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 (Rosa Isela Woo) Integumentary Skin Remarks Incision right hip surgery on 81 (Rosa Isela Woo) Psychiatric Psychiatric: Normal Mood Psychiatric Remarks Dementia (Rosa Isela Woo) Vitals/Results Intake & Output 02/14/17 02/14/17 02/15/17 15:00 23:00 07:00 Intake Total 850 ml 480 ml 480 ml Output Total 1125 ml 450 ml Balance -275 ml 480 ml 30 ml Intake Oral 850 ml 480 ml 480 ml Output Urine Total 1125 ml 450 ml # Voids 2 # Bowel Movements 0 0 0 Vital Signs Vital Signs Date Time Temp Pulse Resp B/P Pulse Ox O2 Delivery O2 Flow Rate FiO2 02/15/17 12:00 97.6 110 18 140/69 94 02/15/17 11:00 94 02/15/17 07:30 97.5 100 18 140/67 95 02/15/17 00:00 96.3 122 19 142/65 90 02/14/17 19:45 21 02/14/17 19:00 98.0 109 20 150/69 91 02/14/17 19:00 Room Air 02/14/17 16:00 97.0 93 18 127/61 94 (Rosa Isela Woo) CBC/BMP: 02/15/17 0437 02/15/17 0437 Lab Results Laboratory Tests Test 02/15/17 04:37 White Blood Count 16.1 TH/MM3 Red Blood Count 3.51 MIL/MM3 Hemoglobin 10.0 GM/DL Hematocrit 30.4 % Mean Corpuscular Volume 86.7 FL Mean Corpuscular Hemoglobin 28.4 PG Mean Corpuscular Hemoglobin 32.8 % Concent Red Cell Distribution Width 14.9 % Platelet Count 327 TH/MM3 Mean Platelet Volume 8.2 FL Sodium Level 137 MEQ/L Potassium Level 3.8 MEQ/L Chloride Level 102 MEQ/L Carbon Dioxide Level 26.7 MEQ/L Anion Gap 8 MEQ/L Blood Urea Nitrogen 20 MG/DL Creatinine 0.79 MG/DL Estimat Glomerular Filtration 97 ML/MIN Rate Random Glucose 88 MG/DL Calcium Level 9.2 MG/DL Current Medications Administered Medications Medications (Trade) Dose Ordered Sig/Marizol Route PRN Reason Start Time Stop Time Status Last Admin Dose Admin Sodium Chloride 2 ml 2 ml UNSCH PRN IVF FLUSH AFTER USING IV ACCESS 02/12/17 18:00 02/15/17 09:32 Sodium Chloride (NS 1000 ml Inj) 1,000 ml @ 70 mls/hr [id number] IV 02/12/17 19:25 02/12/17 21:09 Morphine Sulfate (Morphine Inj) 4 mg Q3H PRN IV Pain 6-10;if unable to take PO 02/12/17 19:30 02/12/17 23:30 Senna/Docusate Sodium ([place]-Colace) 1 tab BID PO 02/12/17 21:00 02/15/17 09:30 Magnesium Hydroxide (Milk Of [place] Liq) 30 ml Q12H PRN PO MILD - MODERATE CONSTIPATION 02/12/17 19:30 02/14/17 20:27 Sennosides (Senokot) 17.2 mg Q12H PRN PO MODERATE - SEVERE CONSTIPATION 02/12/17 19:30 02/14/17 20:28 Clonidine (Catapres) 0.1 mg DAILY PO 02/13/17 09:30 02/15/17 09:29 Losartan Potassium (Cozaar) 50 mg DAILY PO 02/13/17 10:00 02/15/17 09:30 Metformin HCl (Glucophage) 500 mg BID PO 02/13/17 21:00 02/15/17 09:30 Multivitamins (Theragran) 1 tab DAILY PO 02/14/17 09:00 02/15/17 09:29 Neomycin/ Polymyxin/ Dexamethasone (Maxitrol Opht Susp) 1 drop QID LEFT EYE 02/13/17 13:00 02/15/17 12:50 Terazosin HCl (Hytrin) 5 mg HS PO 02/13/17 21:00 02/14/17 20:28 Artificial Tears (Lacrilube Opht Oint) 1 applic HS EACH EYE 02/13/17 21:00 02/14/17 20:27 Artificial Tears (Tears Naturale Opth Soln) 1 drop HS EACH EYE 02/13/17 21:00 02/14/17 20:27 Chlorthalidone (Hygroton) 25 mg DAILY PO 02/13/17 10:00 02/15/17 09:30 Oxybutynin Chloride 5 mg 5 mg DAILY PO 02/13/17 10:00 02/15/17 09:29 Sodium Chloride (NS 1000 ml Inj) 1,000 ml @ 100 mls/hr Q10H IV 02/13/17 10:00 02/13/17 20:00 Acetaminophen/ Hydrocodone Bitart ([place] 10-325 Mg) 1 tab Q4H PRN PO PAIN LESS THAN 5 ON SCALE 02/13/17 09:15 02/14/17 04:51 Docusate Sodium (Colace) 100 mg BID PO 02/14/17 21:00 02/15/17 09:30 Apixaban 2.5 mg 2.5 mg BID PO 02/14/17 09:00 02/15/17 09:29 Ceftriaxone Sodium/Sodium Chloride (Rocephin Inj/NS Inj) 100 ml @ 200 mls/hr Q24H IV 02/13/17 12:00 02/15/17 12:49 (Rosa Isela Woo) Physical Exam General General Appearance: Well Developed, Well Nourished, No Acute Distress, Obese ( Rosa Isela Woo) Eyes Eye Exam: Pupils Equal, Pupils Reactive (Rosa Isela Woo) Ears & Nose Ears & Nose Exam: Nasal Mucosa [place] (Rosa Isela Woo) Throat Throat Exam: Oral Mucosa [place] & Moist (Rosa Isela Woo) Neck Neck Exam: Neck Supple (Rosa Isela Woo) Pulmonary Resp Exam: Clear Bilaterally Resp Remarks No shortness of breath noted at rest (Rosa Isela Woo) Cardiology CV Exam: Regular, Tachycardia (today) (Rosa Isela Woo) Gastrointestinal/Abdomen GI Exam: Soft (obese), Bowel Sounds Present (Rosa Isela Woo) Musculoskeletal MS Exam: Atrophy (right-sided paralysis, old CVA), Unable to Ambulate ( wheelchair bound) (Rosa Isela Woo) Integumentary Skin Exam: Warm, Dry Skin Remarks Right hip surgical incision clean dry and intact, performed on 02/13/17 (Rosa Isela Woo) Neurologic Neuro Exam: Awake (speech is slurred but understandable, answers yes to most questions) (Rosa Isela Woo) Assessment/Plan Assessment/Plan 1. Closed fracture of the right intertrochanteric section of the femur. Surgical repair on 02/13/17 day 2, postop care and pain management per orthopedic team Patient tolerating being up in chair, rehabilitation 2. Renal insufficiency with mild dehydration. Improved with hydration 3. COPD, stable. Patient still smokes in his previous [facility] setting Currently no wheezing or rhonchi noted 4. History of atrial fibrillation. Mild tachycardia noted today, maintaining telemetry 5. Tobacco Patient appears calm has not mentioned his cigarettes abuse. 6. UTI. IV Rocephin, chronic Zamarripa catheter for the past 4 months 7. Anemia, mild. Monitor labs currently stable 8. Hyponatremia, mild. On admission, monitor BMP, resolved this a.m. 9. Leukocytosis on admission, seems to wax and wane Patient has UTI, 10. Osteopenia., Medical management 11. History of CVA., Total right-sided flaccid, patient is wheelchair bound 12. Encephalomalacia., Old CVA 13. Tachycardia, continuous, placed on telemety, hx of atrial fib. to eval. Discussed with nurse Discussed with patient Discussed with Dr. Jacob, seen on his behalf Discharge planning based on orthopedic recommendations, when stable will return to his [facility] CODE STATUS DO NOT RESUSCITATE no code, discussed on admission with niece who got a copy of his record from the [facility] for patient's and family preference. ( Rosa Isela Woo) Assessment/Plan seen, examined by myself, Dr Jacob, today 02/15/17 Tachycardia today Beta blockers increased Discussed with patient Discussed with nurse Possible discharge tomorrow Discussed with mid level provider The exam, history, and the medical decision-making described in the above note were completed with the assistance of the mid-level provider. I reviewed the findings presented. I attest that I had a [id number] encounter with the patient on the same day, and personally performed and documented my assessment and findings in the medical record. (Lesa Jacob MD) Rosa Isela Woo Feb 15, 2017 14:04 Lesa Jacob MD Feb 15, 2017 18:40
[2017-02-15] MEDS: ARTIFICIAL TEARS OPTH SOLN 15 ML BTL EACH EYE SCH (21:55)
[2017-02-15] MEDS: TERAZOSIN HCL 5 MG CAP PO SCH (21:56)
[2017-02-15] MEDS: ARTIFICIAL TEARS OPTH OINT 3.5 APPLIC/3.5 GM TUBO EACH EYE SCH (21:56)
[2017-02-15] MEDS: METOPROLOL TARTRATE 25 MG TAB PO SCH (21:57)
[2017-02-16] VITALS (9 sets, daily range): BP systolic 117–141; BP diastolic 58–71; PULSE 71–103; RESP 16–19; TEMP 96.8–98.5; O2SAT 92–97
[2017-02-16] MEDS: INSULIN ASPART SUPPLEMENTAL SCALE SQ SCH ×4 (06:07→20:40)
--- NOTE | 2017-02-16 07:49 | PD.ORT.PN ---
Subjective Post Op Day #: 3 Subjective Remarks pain under control. resting. Objective Vitals Vital Signs Date Time Temp Pulse Resp B/P Pulse Ox O2 Delivery O2 Flow Rate FiO2 02/16/17 07:38 71 02/16/17 07:16 98.5 72 18 139/71 95 02/16/17 04:00 103 02/16/17 04:00 96.8 89 19 141/69 92 02/16/17 01:00 97.5 98 18 139/65 95 02/16/17 00:00 85 02/15/17 20:10 97 02/15/17 20:10 97.7 97 17 148/68 93 02/15/17 18:51 Room Air 02/15/17 17:57 95 21 02/15/17 16:00 97.7 83 18 114/53 95 02/15/17 12:00 97.6 110 18 140/69 94 02/15/17 11:00 94 I/O 02/15/17 02/15/17 02/15/17 02/16/17 02/16/17 02/16/17 07:00 15:00 23:00 07:00 15:00 23:00 Intake Total 480 ml 480 ml 480 ml 240 ml Output Total 450 ml 900 ml 600 ml 300 ml Balance 30 ml -420 ml -120 ml -60 ml Intake Oral 480 ml 480 ml 480 ml 240 ml Output Urine Total 450 ml 900 ml 600 ml 300 ml # Bowel Movements 0 1 0 0 Result Diagram: 02/15/17 0437 02/15/17 0437 Objective Remarks in bed, nad dressing c/d/i thigh soft neg homans chronic right sided weakness Assessment & Plan Assessment and Plan s/p R Long Troch Nail POD3 TTWB daily dressing changes Eliquis d/c planning home vs snf ortho stable and cleared for d/c f/up dr. villatoro 2 weeks Shaji Nesbitt Feb 16, 2017 07:49
[2017-02-16] MEDS: SODIUM CHLOR 0.9% 1000 ML INJ 1,000 ML IV SCH ×5 (08:00→20:41)
[2017-02-16 08:25] LABS: HEMATOCRIT 32.1 % (39.0-51.0); MEAN CELL VOLUME 87.4 FL (80.0-100.0); MEAN CORPUSCULAR HEMOGLOBIN 27.7 PG (27.0-34.0); MEAN CORPUSCULAR HGB CONC 31.7 % (32.0-36.0); PLATELET COUNT 363 TH/MM3 (150-450); RED BLOOD COUNT 3.67 MIL/MM3 (4.50-5.90); RED CELL DISTRIBUTION WIDTH 14.8 % (11.6-17.2); REVIEW FLAG FINAL; WHITE BLOOD COUNT 16.6 TH/MM3 (4.0-11.0)
[2017-02-16 08:48] LABS: POTASSIUM 3.5 MEQ/L (3.5-5.1)
[2017-02-16] MEDS: SODIUM CHLORIDE 0.9% FLUSH 5 ML FLUSH IVF SCH ×2 (09:00→20:39)
[2017-02-16] MEDS: MULTIVITAMIN TAB PO SCH (09:27)
[2017-02-16] MEDS: METOPROLOL TARTRATE 25 MG TAB PO SCH ×2 (09:27→20:40)
[2017-02-16] MEDS: LOSARTAN 50 MG TAB PO SCH (09:27)
[2017-02-16] MEDS: cloNIDine HCL 0.1 MG TAB PO SCH (09:27)
[2017-02-16] MEDS: metFORMIN HCL 500 MG TAB PO SCH ×2 (09:27→20:39)
[2017-02-16] MEDS: APIXABAN 2.5 MG TABLET PO SCH ×2 (09:27→20:40)
[2017-02-16] MEDS: OXYBUTYNIN CHLORIDE 5 MG PO SCH (09:27)
[2017-02-16] MEDS: DOCUSATE SODIUM 100 MG CAP PO SCH ×2 (09:28→20:40)
[2017-02-16] MEDS: DOCUSATE SODIUM 50 MG/SENNA 8.6 MG TAB PO SCH ×2 (09:28→20:40)
[2017-02-16] MEDS: CHLORTHALIDONE 50 MG TAB PO SCH (09:28)
[2017-02-16] MEDS: NEOMYCIN/POLYMYX/DEXAMETH OPHT SUSP 5 ML BTL LEFT EYE SCH ×4 (09:29→20:39)
[2017-02-16] MEDS: SODIUM CHLORIDE 0.9% FLUSH 10 ML FLUSH IVF PRN (09:29)
--- NOTE | 2017-02-16 11:25 | HHI.PR ---
Subjective Subjective Remarks resting in bed awake, no acute shortness of breath Says yes to chest pain off and on pleasant AMS, appears to be his baseline, answering yes or no to simple questions today Afebrile Telemetry (Rosa Isela Woo) Review of Systems Constitutional Constitutional: Weakness Constitutional Remarks 10 point ROS done positives noted (Rosa Isela Woo) Cardiology CV: Chest Pain (states yes to having chest pain off and on even before admission) CV Remarks Telemetry 3 beat run V. 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 (Rosa Isela Woo) Integumentary Skin Remarks Incision right hip surgery on 7916 (Rosa Isela Woo) Psychiatric Psychiatric: Normal Mood Psychiatric Remarks Dementia (Rosa Isela Woo) Vitals/Results Intake & Output 02/15/17 02/15/17 02/16/17 15:00 23:00 07:00 Intake Total 480 ml 480 ml 240 ml Output Total 900 ml 600 ml 300 ml Balance -420 ml -120 ml -60 ml Intake Oral 480 ml 480 ml 240 ml Output Urine Total 900 ml 600 ml 300 ml # Bowel Movements 1 0 0 Vital Signs Vital Signs Date Time Temp Pulse Resp B/P Pulse Ox O2 Delivery O2 Flow Rate FiO2 02/16/17 07:38 71 02/16/17 07:16 98.5 72 18 139/71 95 02/16/17 04:00 103 02/16/17 04:00 96.8 89 19 141/69 92 02/16/17 01:00 97.5 98 18 139/65 95 02/16/17 00:00 85 02/15/17 20:10 97 02/15/17 20:10 97.7 97 17 148/68 93 02/15/17 18:51 Room Air 02/15/17 17:57 95 21 02/15/17 16:00 97.7 83 18 114/53 95 02/15/17 12:00 97.6 110 18 140/69 94 (Rosa Isela Woo) CBC/BMP: 02/16/17 0617 02/16/17 0617 Lab Results Laboratory Tests Test 02/16/17 06:17 White Blood Count 16.6 TH/MM3 Red Blood Count 3.67 MIL/MM3 Hemoglobin 10.2 GM/DL Hematocrit 32.1 % Mean Corpuscular Volume 87.4 FL Mean Corpuscular Hemoglobin 27.7 PG Mean Corpuscular Hemoglobin 31.7 % Concent Red Cell Distribution Width 14.8 % Platelet Count 363 TH/MM3 Mean Platelet Volume 8.5 FL Sodium Level 135 MEQ/L Potassium Level 3.5 MEQ/L Chloride Level 101 MEQ/L Carbon Dioxide Level 24.0 MEQ/L Anion Gap 10 MEQ/L Blood Urea Nitrogen 22 MG/DL Creatinine 0.82 MG/DL Estimat Glomerular Filtration 93 ML/MIN Rate Random Glucose 87 MG/DL Calcium Level 9.7 MG/DL Imaging Remarks Last Impressions Hip X-Ray 02/13/17 0000 Signed Impressions: Service Date/Time: Monday, February 13, 2017 10:45 - CONCLUSION: Intertrochanteric fracture has been fixated with hardware without complication.. Arun Goodwin MD Wrist X-Ray 02/12/171754 Signed Impressions: Service Date/Time: Sunday, February 12, 2017 18:21 - CONCLUSION: 1. No acute fracture or malalignment. 2. Osteopenia and osteoarthritic change. Pa Montesinos MD Shoulder X-Ray 02/12/171754 Signed Impressions: Service Date/Time: Sunday, February 12, 2017 18:15 - CONCLUSION: Osteopenia with no acute fracture or malalignment. Pa Montesinos MD Hip and Pelvis X-Ray 02/12/171754 Signed Impressions: Service Date/Time: Sunday, February 12, 2017 18:12 - CONCLUSION: Comminuted right intertrochanteric fracture. Pa Montesinos MD Chest X-Ray 02/12/171754 Signed Impressions: Service Date/Time: Sunday, February 12, 2017 18:19 - CONCLUSION: No acute disease. Pa Montesinos MD Head CT 02/12/17 0000 Signed Impressions: Service Date/Time: Sunday, February 12, 2017 18:31 - CONCLUSION: 1. Large area of encephalomalacia involving the left middle cerebral artery territory. 2. No acute hemorrhage or mass effect. Pa Montesinos MD Current Medications Administered Medications Medications (Trade) Dose Ordered Sig/Marizol Route PRN Reason Start Time Stop Time Status Last Admin Dose Admin Sodium Chloride 2 ml 2 ml UNSCH PRN IVF FLUSH AFTER USING IV ACCESS 02/12/17 18:00 02/16/17 09:29 Sodium Chloride (NS 1000 ml Inj) 1,000 ml @ 70 mls/hr [id number] IV 02/12/17 19:25 02/12/17 21:09 Morphine Sulfate (Morphine Inj) 4 mg Q3H PRN IV Pain 6-10;if unable to take PO 02/12/17 19:30 02/12/17 23:30 Senna/Docusate Sodium ([place]-Colace) 1 tab BID PO 02/12/17 21:00 02/16/17 09:28 Magnesium Hydroxide (Milk Of [place] Liq) 30 ml Q12H PRN PO MILD - MODERATE CONSTIPATION 02/12/17 19:30 02/14/17 20:27 Sennosides (Senokot) 17.2 mg Q12H PRN PO MODERATE - SEVERE CONSTIPATION 02/12/17 19:30 02/14/17 20:28 Clonidine (Catapres) 0.1 mg DAILY PO 02/13/17 09:30 02/16/17 09:27 Losartan Potassium (Cozaar) 50 mg DAILY PO 02/13/17 10:00 02/16/17 09:27 Metformin HCl (Glucophage) 500 mg BID PO 02/13/17 21:00 02/16/17 09:27 Multivitamins (Theragran) 1 tab DAILY PO 02/14/17 09:00 02/16/17 09:27 Neomycin/ Polymyxin/ Dexamethasone (Maxitrol Opht Susp) 1 drop QID LEFT EYE 02/13/17 13:00 02/16/17 09:29 Terazosin HCl (Hytrin) 5 mg HS PO 02/13/17 21:00 02/15/17 21:56 Artificial Tears (Lacrilube Opht Oint) 1 applic HS EACH EYE 02/13/17 21:00 02/15/17 21:56 Artificial Tears (Tears Naturale Opth Soln) 1 drop HS EACH EYE 02/13/17 21:00 02/15/17 21:55 Chlorthalidone (Hygroton) 25 mg DAILY PO 02/13/17 10:00 02/16/17 09:28 Oxybutynin Chloride 5 mg 5 mg DAILY PO 02/13/17 10:00 02/16/17 09:27 Sodium Chloride (NS 1000 ml Inj) 1,000 ml @ 100 mls/hr Q10H IV 02/13/17 10:00 02/13/17 20:00 Acetaminophen/ Hydrocodone Bitart ([place] 10-325 Mg) 1 tab Q4H PRN PO PAIN LESS THAN 5 ON SCALE 02/13/17 09:15 02/14/17 04:51 Docusate Sodium (Colace) 100 mg BID PO 02/14/17 21:00 02/16/17 09:28 Apixaban 2.5 mg 2.5 mg BID PO 02/14/17 09:00 02/16/17 09:27 Ceftriaxone Sodium/Sodium Chloride (Rocephin Inj/NS Inj) 100 ml @ 200 mls/hr Q24H IV 02/13/17 12:00 02/15/17 12:49 Metoprolol Tartrate (Lopressor) 25 mg BID PO 02/15/17 21:00 02/16/17 09:27 (Rosa Isela Woo) Physical Exam General General Appearance: Well Developed, Well Nourished, No Acute Distress, Obese ( Rosa Isela Woo) Eyes Eye Exam: Pupils Equal, Pupils Reactive (Rosa Isela Woo) Ears & Nose Ears & Nose Exam: Nasal Mucosa [place] (Rosa Isela Woo) Throat Throat Exam: Oral Mucosa [place] & Moist (Rosa Isela Woo) Neck Neck Exam: Neck Supple (Rosa Isela Woo) Pulmonary Resp Exam: Clear Bilaterally Resp Remarks No shortness of breath noted at rest (Rosa Isela Woo) Cardiology CV Exam: Regular, Normal Sinus Rhythm (with 3 beat run V. tach noted 1, patient now states chest pain off and on), Arrhythmia, Tachycardia (controlled now with increased beta erica) (Rosa Isela Woo) Gastrointestinal/Abdomen GI Exam: Soft (obese), Bowel Sounds Present (Rosa Isela Woo) Musculoskeletal MS Exam: Atrophy (right-sided paralysis, old CVA), Unable to Ambulate ( wheelchair bound) (Rosa Isela Woo) Integumentary Skin Exam: Warm, Dry Skin Remarks Right hip surgical incision clean dry and intact, performed on 02/13/17 (Rosa Isela Woo) Neurologic Neuro Exam: Awake (speech is slurred but understandable, answers yes to most questions) (Rosa Isela Woo) Assessment/Plan Assessment/Plan 1. Closed fracture of the right intertrochanteric section of the femur. Surgical repair on 02/13/17 day 3, postop care and pain management per orthopedic team Patient tolerating being up in chair, rehabilitation, stable for DC from orthopedic standpoint 2. Renal insufficiency with mild dehydration. Improved with hydration 3. COPD, stable. Patient still smokes in his previous [facility] setting Currently no wheezing or rhonchi noted 4. History of atrial fibrillation. Mild tachycardia on 711, beta erica increased ,maintaining telemetry Noted 3 beat run of V. tach last a.m. while sleeping, patient does note some chest pain off and on even before admission, denies any chest soreness, cardiology consult for any further testing before his discharge 5. Tobacco Patient appears calm has not mentioned his cigarettes abuse. 6. UTI. IV Rocephin, chronic Zamarripa catheter for the past 4 months 7. Anemia, mild. Monitor labs currently stable 8. Hyponatremia, mild. On admission, monitor BMP, resolved this a.m. 9. Leukocytosis on admission, seems to wax and wane Patient has UTI, 10. Osteopenia., Medical management 11. History of CVA., Total right-sided flaccid, patient is wheelchair bound 12. Encephalomalacia., Old CVA 13. Tachycardia, continuous, placed on telemety, hx of atrial fib. , Currently sinus rhythm, IIIB run V. tach on chart Chest pain, rule out CAD, 2-D echo ordered Discussed with nurse Discussed with patient Discussed with Dr. Jacob, seen on his behalf Discharge planning based on orthopedic recommendations, when stable will return to his [facility] CODE STATUS DO NOT RESUSCITATE no code, discussed on admission with niece who got a copy of his record from the [facility] for patient's and family preference. Cardiology consult for any further testing during this hospital stay, if not discharge planning in process, probable today. Heart rate controlled, 80s to 90s, heart rate 103 noted on vital signs, not seen on telemetry except for 3 beat run. (Rosa Isela Woo) Assessment/Plan seen, examined by myself, Dr Jacob, today Discussed with patient Waiting for cardiology evaluation Discharge to halfway if cleared by cardiology Discussed with mid level provider The exam, history, and the medical decision-making described in the above note were completed with the assistance of the mid-level provider. I reviewed the findings presented. I attest that I had a [id number] encounter with the patient on the same day, and personally performed and documented my assessment and findings in the medical record. (Lesa Jacob MD) Rosa Isela Woo Feb 16, 2017 11:25 Lesa Jacob MD Feb 16, 2017 18:34
[2017-02-16] MEDS: cefTRIAXone INJ 1,000 MG in SODIUM CHLORIDE 0.9% INJ 100 ML IV SCH (12:10)
[2017-02-16] MEDS: ARTIFICIAL TEARS OPTH SOLN 15 ML BTL EACH EYE SCH (20:39)
[2017-02-16] MEDS: ARTIFICIAL TEARS OPTH OINT 3.5 APPLIC/3.5 GM TUBO EACH EYE SCH (20:39)
[2017-02-16] MEDS: TERAZOSIN HCL 5 MG CAP PO SCH (20:40)
[2017-02-17] VITALS: BP 115/60; PULSE 88; RESP 17; TEMP 98.3; O2SAT 93
[2017-02-17 00:05] VITALS: PULSE 97
[2017-02-17 04:00] VITALS: BP 135/65; PULSE 95; PULSE 98; RESP 16; TEMP 98.5; O2SAT 94
[2017-02-17] MEDS: INSULIN ASPART SUPPLEMENTAL SCALE SQ SCH (06:19)
[2017-02-17 08:00] VITALS: BP 142/75; PULSE 91; RESP 18; TEMP 97.4; O2SAT 95
--- NOTE | 2017-02-17 08:06 | MB ---
cc: KEN RUSSELL DATE OF CONSULTATION 02/16/2017 REASON FOR CONSULTATION Mr. Zhao is a 71-year-old white male with a history of CVA and dementia who was brought in for the right hip pain. He was found to have an intertrochanteric hip fracture and underwent ORIF. He gives a vague history of chest pain which he cannot easily localized and at times points to his epigastric area. He denies any shortness of breath. PAST MEDICAL HISTORY His past medical history is positive for: 1. CVA 2. Diabetes mellitus 3. Right-sided weakness 4. Hematuria with a chronic Zamarripa catheter. 5. Bladder tumor 6. Peptic ulcer disease 7. Dementia 8. Surgery for bladder tumors MEDICATIONS AT HOME Include: 1. Chlorthalidone 2. Clonidine 3. Maxitrol ophthalmic drops 4. Metformin 5. Metoprolol 6. Cozaar 7. Eliquis 8. Acetaminophen 9. Hydrocodone 10. Natural tears 11. Oxybutynin 12. Prednisone 13. Terazosin ALLERGIES None SOCIAL HISTORY The patient continues to smoke. He does not drink alcohol. He lives at [facility], [place]. FAMILY HISTORY Negative for heart disease. REVIEW OF SYSTEMS The review of systems is otherwise negative. PHYSICAL EXAMINATION VITAL SIGNS: Blood pressure 117/68, pulse 90 and regular. HEENT: Negative. 2+ carotid upstrokes, no bruits. LUNGS: Clear. HEART: Regular with no murmur, gallop or rub. ABDOMEN: Soft. No bruits. EXTREMITIES: Without edema. NEUROLOGIC: Exam shows right-sided weakness. The patient is mildly confused. EKG was reviewed and showed normal sinus rhythm with normal axis and intervals. LABORATORY DATA Hemoglobin 10.2, potassium 3.5, creatinine 0.8, AST and ALT normal. DIAGNOSIS 1. Status post ORIF of the right intertrochanteric fracture. 2. Noncardiac chest pain. 3. COPD 4. Paroxysmal atrial fibrillation 5. History of CVA with right-sided weakness. 6. Dementia 7. Nonsustained ventricular tachycardia DISPOSITION Mr. Zhao has not had any evidence of angina or congestive heart failure. He has tolerated his surgery well. He remains in sinus rhythm and I recommend to continue anticoagulation with Eliquis to decrease the chance of recurrent stroke. I recommend to continue the modification of his cardiac risk factors especially hypertension and diabetes mellitus. I encouraged him to quit smoking. No further cardiac evaluation is planned for this time. He remains stable from a cardiac standpoint. MD NIMA Hines/MILLIE /6:04 PM /7:56 AM
--- NOTE | 2017-02-17 08:09 | PD.CARD.PN ---
Subjective Subjective Remarks No angina or SOB, feels fine Objective Medications Current Medications Medications (Trade) Dose Ordered Sig/Marizol Route Start Time Stop Time Status Last Admin Sodium Chloride 2 ml 2 ml UNSCH PRN IVF 02/12/17 18:00 02/16/17 09:29 (NS 1000 ml Inj) 1,000 ml @ 70 mls/hr [id number] IV 02/12/17 19:25 02/12/17 21:09 (Tylenol) 650 mg Q4H PRN PO 02/12/17 19:30 (Zofran Inj) 4 mg Q6H PRN IVP 02/12/17 19:30 (Morphine Inj) 2 mg Q3H PRN IV 02/12/17 19:30 (Morphine Inj) 4 mg Q3H PRN IV 02/12/17 19:30 02/12/17 23:30 ([place]-Colace) 1 tab BID PO 02/12/17 21:00 02/16/17 20:40 (Milk Of Magnesia Liq) 30 ml Q12H PRN PO 02/12/17 19:30 02/14/17 20:27 (Senokot) 17.2 mg Q12H PRN PO 02/12/17 19:30 02/14/17 20:28 (Lactulose Liq) 30 ml DAILY PRN PO 02/12/17 19:30 (Catapres) 0.1 mg DAILY PO 02/13/17 09:30 02/16/17 09:27 (Cozaar) 50 mg DAILY PO 02/13/17 10:00 02/16/17 09:27 (Glucophage) 500 mg BID PO 02/13/17 21:00 02/16/17 20:39 (Theragran) 1 tab DAILY PO 02/14/17 09:00 02/16/17 09:27 (Maxitrol Opht Susp) 1 drop QID LEFT EYE 02/13/17 13:00 02/16/17 20:39 (Hytrin) 5 mg HS PO 02/13/17 21:00 02/16/17 20:40 (Lacrilube Opht Oint) 1 applic HS EACH EYE 02/13/17 21:00 02/16/17 20:39 (Tears Naturale Opth Soln) 1 drop HS EACH EYE 02/13/17 21:00 02/16/17 20:39 (Hygroton) 25 mg DAILY PO 02/13/17 10:00 02/16/17 09:28 (Ditropan Xl) 5 mg DAILY PO 02/13/17 10:00 02/16/17 09:27 Miscellaneous 1 ea 1 ea UNSCH PRN OTHER 02/13/17 09:30 (NS 1000 ml Inj) 1,000 ml @ 100 mls/hr Q10H IV 02/13/17 10:00 02/13/17 20:00 (NS Flush) 2 ml UNSCH PRN IVF 02/13/17 09:15 (NS Flush) 2 ml BID IVF 02/13/17 21:00 (Morphine Inj) 3 mg Q3H PRN IV PUSH 02/13/17 09:15 ([place] 10-325 Mg) 1 tab Q4H PRN PO 02/13/17 09:15 02/14/17 04:51 ([place] 10-325 Mg) 2 tab Q6H PRN PO 02/13/17 09:15 (Zofran Inj) 4 mg Q6H PRN IVP 02/13/17 09:15 (Colace) 100 mg BID PO 02/14/17 21:00 02/16/17 20:40 (Ambien) 5 mg HS PRN PO 02/13/17 09:15 (Dulcolax Supp) 10 mg DAILY PRN RECTAL 02/13/17 09:15 (Narcan Inj) 0.4 mg UNSCH PRN IV 02/13/17 09:15 (Benadryl Inj) 25 mg Q6H PRN IV 02/13/17 09:15 Apixaban 2.5 mg 2.5 mg BID PO 02/14/17 09:00 02/16/17 20:40 (Rocephin Inj/NS Inj) 100 ml @ 200 mls/hr Q24H IV 02/13/17 12:00 02/16/17 12:10 (D50w (Vial) Inj) 50 ml UNSCH PRN IV 02/13/17 17:45 (Glucagon Inj) 1 mg UNSCH PRN OTHER 02/13/17 17:45 (Lopressor) 25 mg BID PO 02/15/17 21:00 02/16/17 20:40 Vital Signs / I&O Vital Signs Date Time Temp Pulse Resp B/P Pulse Ox O2 Delivery O2 Flow Rate FiO2 02/17/17 04:00 95 02/17/17 04:00 98.5 98 16 135/65 94 02/17/17 00:05 97 02/17/17 00:00 98.3 88 17 115/60 93 02/16/17 20:30 96 02/16/17 20:00 98.1 96 16 128/69 94 02/16/17 19:06 Room Air 02/16/17 16:00 97.7 90 18 117/58 97 02/16/17 12:00 97.5 93 18 120/61 95 I/O 02/16/17 02/16/17 02/16/17 02/17/17 02/17/17 02/17/17 07:00 15:00 23:00 07:00 15:00 23:00 Intake Total 240 ml 600 ml 480 ml 480 ml Output Total 300 ml 400 ml 700 ml 550 ml Balance -60 ml 200 ml -220 ml -70 ml Intake Oral 240 ml 600 ml 480 ml 480 ml Output Urine Total 300 ml 400 ml 700 ml 550 ml # Bowel Movements 0 0 Physical Exam GENERAL: In NAD SKIN: Warm and dry. HEAD: Normocephalic. EYES: No scleral icterus. No injection or drainage. NECK: Supple, trachea midline. No JVD or lymphadenopathy. CARDIOVASCULAR: Regular rate and rhythm without murmurs, gallops, or rubs. RESPIRATORY: Breath sounds equal bilaterally. No accessory muscle use. GASTROINTESTINAL: Abdomen soft, non-tender, nondistended. MUSCULOSKELETAL: No cyanosis, or edema. Laboratory Laboratory Tests Test 02/12/17 02/13/17 02/16/17 18:45 04:28 06:17 Urine Color YELLOW Urine Turbidity HAZY Urine pH 6.5 Urine Specific [place] 1.016 Urine Protein 30 mg/dL Urine Glucose (UA) NEG mg/dL Urine Ketones NEG mg/dL Urine Occult Blood MOD Urine Nitrite NEG Urine Bilirubin NEG Urine Urobilinogen LESS THAN 2.0 MG/DL Urine Leukocyte Esterase LARGE Urine RBC 167 /hpf Urine WBC 82 /hpf Urine Mucus FEW /lpf Microscopic Urinalysis Comment CATH-CULTURE IND Neutrophils (%) (Auto) 70.3 % Lymphocytes (%) (Auto) 20.1 % Monocytes (%) (Auto) 8.1 % Eosinophils (%) (Auto) 1.2 % Basophils (%) (Auto) 0.3 % Neutrophils # (Auto) 10.3 TH/MM3 Lymphocytes # (Auto) 3.0 TH/MM3 Monocytes # (Auto) 1.2 TH/MM3 Eosinophils # (Auto) 0.2 TH/MM3 Basophils # (Auto) 0.0 TH/MM3 CBC Comment DIFF FINAL Differential Comment White Blood Count 16.6 TH/MM3 Red Blood Count 3.67 MIL/MM3 Hemoglobin 10.2 GM/DL Hematocrit 32.1 % Mean Corpuscular Volume 87.4 FL Mean Corpuscular Hemoglobin 27.7 PG Mean Corpuscular Hemoglobin 31.7 % Concent Red Cell Distribution Width 14.8 % Platelet Count 363 TH/MM3 Mean Platelet Volume 8.5 FL Sodium Level 135 MEQ/L Potassium Level 3.5 MEQ/L Chloride Level 101 MEQ/L Carbon Dioxide Level 24.0 MEQ/L Anion Gap 10 MEQ/L Blood Urea Nitrogen 22 MG/DL Creatinine 0.82 MG/DL Estimat Glomerular Filtration 93 ML/MIN Rate Random Glucose 87 MG/DL Calcium Level 9.7 MG/DL Imaging Last Impressions Hip X-Ray 02/13/17 0000 Signed Impressions: Service Date/Time: Monday, February 13, 2017 10:45 - CONCLUSION: Intertrochanteric fracture has been fixated with hardware without complication.. Arun Goodwin MD Wrist X-Ray 02/12/171754 Signed Impressions: Service Date/Time: Sunday, February 12, 2017 18:21 - CONCLUSION: 1. No acute fracture or malalignment. 2. Osteopenia and osteoarthritic change. Pa Montesinos MD Shoulder X-Ray 02/12/171754 Signed Impressions: Service Date/Time: Sunday, February 12, 2017 18:15 - CONCLUSION: Osteopenia with no acute fracture or malalignment. Pa Montesinos MD Hip and Pelvis X-Ray 02/12/171754 Signed Impressions: Service Date/Time: Sunday, February 12, 2017 18:12 - CONCLUSION: Comminuted right intertrochanteric fracture. Pa Montesinos MD Chest X-Ray 02/12/171754 Signed Impressions: Service Date/Time: Sunday, February 12, 2017 18:19 - CONCLUSION: No acute disease. Pa Montesinos MD Head CT 02/12/17 0000 Signed Impressions: Service Date/Time: Sunday, February 12, 2017 18:31 - CONCLUSION: 1. Large area of encephalomalacia involving the left middle cerebral artery territory. 2. No acute hemorrhage or mass effect. Pa Montesinos MD Assessment and Plan Problem List: (1) Closed fracture of intertrochanteric section of femur (2) History of CVA with residual deficit (3) Atrial fibrillation (4) Renal insufficiency (5) Tobacco abuse Assessment and Plan No angina or CHF symptoms. Remains stable from cardiac standpoint. OK to discharge, no further cardiac evaluation necessary at this point. Luis Bush MD Feb 17, 2017 08:08
[2017-02-17] MEDS: DOCUSATE SODIUM 50 MG/SENNA 8.6 MG TAB PO SCH (09:37)
[2017-02-17] MEDS: METOPROLOL TARTRATE 25 MG TAB PO SCH (09:38)
[2017-02-17] MEDS: CHLORTHALIDONE 50 MG TAB PO SCH (09:38)
[2017-02-17] MEDS: MULTIVITAMIN TAB PO SCH (09:38)
[2017-02-17] MEDS: cloNIDine HCL 0.1 MG TAB PO SCH (09:38)
[2017-02-17] MEDS: metFORMIN HCL 500 MG TAB PO SCH (09:38)
[2017-02-17] MEDS: OXYBUTYNIN CHLORIDE 5 MG PO SCH (09:38)
[2017-02-17] MEDS: APIXABAN 2.5 MG TABLET PO SCH (09:38)
[2017-02-17] MEDS: LOSARTAN 50 MG TAB PO SCH (09:38)
[2017-02-17] MEDS: DOCUSATE SODIUM 100 MG CAP PO SCH (09:38)
[2017-02-17] MEDS: SODIUM CHLORIDE 0.9% FLUSH 5 ML FLUSH IVF SCH (09:39)
[2017-02-17] MEDS: NEOMYCIN/POLYMYX/DEXAMETH OPHT SUSP 5 ML BTL LEFT EYE SCH (09:42)
[2017-02-17] MEDS ORDERED: HYDR-3288 PO (11:37)
--- NOTE | 2017-02-17 18:34 | HHI.PR ---
Subjective Interval History Alert, verbal with occasional words, no visible distress, occasional cough which is chronic Review of Systems Constitutional Constitutional: Weakness Constitutional Remarks Mild right hip pain, 10 systems reviewed otherwise negative, he has a long-term left-sided weakness secondary to his stroke Cardiology CV: Chest Pain (states yes to having chest pain off and on even before admission) Musculoskeletal MS: Weakness, Stiffness Psychiatric Psychiatric: Normal Mood Vitals/Results Intake & Output 02/16/17 02/16/17 02/17/17 15:00 23:00 07:00 Intake Total 600 ml 480 ml 480 ml Output Total 400 ml 700 ml 550 ml Balance 200 ml -220 ml -70 ml Intake Oral 600 ml 480 ml 480 ml Output Urine Total 400 ml 700 ml 550 ml # Bowel Movements 0 Vital Signs Vital Signs Date Time Temp Pulse Resp B/P Pulse Ox O2 Delivery O2 Flow Rate FiO2 02/17/17 08:00 97.4 91 18 142/75 95 02/17/17 04:00 95 02/17/17 04:00 98.5 98 16 135/65 94 02/17/17 00:05 97 02/17/17 00:00 98.3 88 17 115/60 93 02/16/17 20:30 96 02/16/17 20:00 98.1 96 16 128/69 94 02/16/17 19:06 Room Air CBC/BMP: 02/16/17 0617 02/16/17 0617 Physical Exam General General Appearance: Well Developed, Well Nourished, No Acute Distress, Obese Eyes Eye Exam: Pupils Equal, Pupils Reactive Ears & Nose Ears & Nose Exam: Nasal Mucosa [place] Throat Throat Exam: Oral Mucosa [place] & Moist Neck Neck Exam: Neck Supple Pulmonary Resp Exam: Clear Bilaterally Cardiology CV Exam: Regular, Normal Sinus Rhythm (with 3 beat run V. tach noted 1, patient now states chest pain off and on), Arrhythmia, Tachycardia (controlled now with increased beta erica) Gastrointestinal/Abdomen GI Exam: Soft (obese), Bowel Sounds Present Musculoskeletal MS Exam: Atrophy (right-sided paralysis, old CVA), Unable to Ambulate ( wheelchair bound) Integumentary Skin Exam: Warm, Dry Neurologic Neuro Exam: Awake (speech is slurred but understandable, answers yes to most questions) Assessment/Plan Assessment/Plan Assessment Right hip fracture, status post surgery on 02/13/17 Chronic kidney disease COPD with active smoking History of atrial fibrillation, stroke, aphasia, anemia, UTI Management Discharge to rehabilitation Continue pain control DVT prophylaxis Mild regimen Continue chronic anticoagulation Wound care Daily wound changes Follow-up with orthopedics in 2 weeks Discussed with nurse Discussed with patient Discharge Minutes: 40 Lesa Jacob MD Feb 17, 2017 18:34
== END 2017-02-17 13:33 | DRG 481 ==
LOC: NEPE 17:35 → NEDA 19:27 → N06A 20:05
PROVIDERS: ADMIT Specialist; ATTEND Specialist
PROC: 0QS636Z Reposition Right Upper Femur with Intramedullary Internal Fixation Device, Percutaneous Approach (ICD-10-PCS; principal; 2017-02-13 09:22)
DX: S72.141A Displaced intertrochanteric fracture of right femur, initial encounter for closed fracture (principal); I47.2 Ventricular tachycardia; E11.22 Type 2 diabetes mellitus with diabetic chronic kidney disease; E87.1 Hypo-osmolality and hyponatremia; I69.351 Hemiplegia and hemiparesis following cerebral infarction affecting right dominant side; F03.90 Unspecified dementia, unspecified severity, without behavioral disturbance, psychotic disturbance, mood disturbance, and anxiety; I48.0 Paroxysmal atrial fibrillation; E86.0 Dehydration; I12.9 Hypertensive chronic kidney disease with stage 1 through stage 4 chronic kidney disease, or unspecified chronic kidney disease; N39.0 Urinary tract infection, site not specified; J44.9 Chronic obstructive pulmonary disease, unspecified; E78.5 Hyperlipidemia, unspecified; E66.9 Obesity, unspecified; I69.320 Aphasia following cerebral infarction; K21.9 Gastro-esophageal reflux disease without esophagitis; F17.210 Nicotine dependence, cigarettes, uncomplicated; D64.9 Anemia, unspecified; Z66 Do not resuscitate; W18.30XA Fall on same level, unspecified, initial encounter; B96.89 Other specified bacterial agents as the cause of diseases classified elsewhere; N18.9 Chronic kidney disease, unspecified; Z79.84 Long term (current) use of oral hypoglycemic drugs; Y92.9 Unspecified place or not applicable; Z79.01 Long term (current) use of anticoagulants; Z68.33 Body mass index [BMI] 33.0-33.9, adult; Z99.3 Dependence on wheelchair
CPT/HCPCS: 70450; 71010; 73030; 73110; 73502; 76000; 76937; 80048; 80053; 81001; 82948; 85025; 85027; 85610; 85730; 86850; 86900; 86901; 87040; 87077; 87086; 87186; 93005; 96374; 96375; C1713; J0690; J0696; J1580; J1815; J2270; J2370; J2405; J3010; J3370; J7030; J7120